=== PATIENT | male | born 1945 | race Caucasian/White ===

== ENCOUNTER 2019-11-28 20:06 | Outpatient (CLI) | payer MEDICAID, SELFPAY ==
[2019-12-02 16:57] LABS: Levetiracetam Keppra 27.5 mcg/mL
== END 2019-11-28 20:07 | disposition home or self-care (01) ==
LOC: LAB 20:07
PROVIDERS: Family Provider Family Medicine; Visit Provider Family Medicine
DX: G40.89 Other seizures (principal)
CPT/HCPCS: 80177

== ENCOUNTER 2023-09-25 13:38 | Emergency (ER) | payer MEDICAID, SELFPAY ==
[2023-09-25] VITALS (7 sets, daily range): BP systolic 125–142; BP diastolic 78–91; PULSE 75–114; RESP 17–19; TEMP 36.9; O2SAT 94–98; BMI 24.1
--- NOTE | 2023-09-25 13:43 | CTR_ITS ---
PROCEDURE INFORMATION: Exam: CT Head Without Contrast Exam date and time: 09/25/2023 1:37 PM Age: 77 years old Clinical indication: Stroke-like symptoms; Speech disturbance and other: Right side weakness TECHNIQUE: Imaging protocol: Computed tomography of the head without contrast. Radiation optimization: All CT scans at this facility use at least one of these dose optimization techniques: automated exposure control; mA and/or kV adjustment per patient size (includes targeted exams where dose is matched to clinical indication); or iterative reconstruction. Other technique: STROKE PROTOCOL was implemented. REPORTING DATA: Count of CT and Cardiac NM exams in prior 12 months: This patient has received 0 known CTs and 0 known cardiac nuclear medicine studies in the 12 months prior to the current study. COMPARISON: CT head wo con* [id number] 04/09/2019 11:56 AM RADIATION DOSE METRICS: Total DLP (mGy-cm): 1127.68 FINDINGS: Brain: There is diffuse cerebral atrophy present, consistent with this patient's age. Periventricular and subcortical white matter low densities are present which at this age likely represent microvascular ischemic change. 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 No evidence for large acute ischemic infarction. Please note acute ischemia can be occult by head CT. No evidence for acute intracranial hemorrhage. Cerebral ventricles: No ventriculomegaly. Paranasal sinuses: Visualized sinuses are unremarkable. No fluid levels. Mastoid air cells: Visualized mastoid air cells are well aerated. Bones/joints: Unremarkable. No acute fracture. Soft tissues: Unremarkable. Vasculature: Calcified plaque is present within the carotid siphons. CT/CT head wo con* [id number] IMPRESSION: There are senescent changes of the brain as described above. No evidence for large acute ischemic infarction or acute intracranial injury. ASSESSMENT: ASPECTS ([place] Stroke Program Early CT Score) is 10.
--- NOTE | 2023-09-25 14:06 | W.ED.NEUROSD ---
HPI - Neuro Symptoms/Deficit General: Chief Complaint: Neuro Symptoms/Deficit Stated Complaint: RIGHT SIDE WEAKNESS Time Seen by Provider: 09/25/23 13:47 History of Present Illness: 77-year-old with history of seizure disorder, hypertension and dementia presents emergency room with right-sided weakness. [facility] to the [facility] staff last well-known was around 11 AM but patient started complaining of right-sided weakness around noon. Patient denies any change in his speech denies any nausea, vomiting, chest pain, shortness of breath. Upon present emergency room patient was taken to CT scan per stroke protocol. Patient was found to have profound right leg weakness and mild drifting of the right upper arm. No other symptoms at this time. Associated symptoms: Reports headache(s); Deny chest pain, nausea, vertigo or vomiting Review of Systems General: Reports: 10 or more systems reviewed and unremarkable except in HPI and below Const: Reports: chills; Denies: fever(s) Card: Denies: chest pain, palpitations, irregular heart rhythm, swelling of feet/ankles, lightheadedness, dyspnea on exertion or orthopnea GI: Denies: abdominal pain, nausea, vomiting, hematemesis, coffee ground emesis, dysphagia, heartburn, early satiety, diarrhea or constipation Musc: Denies: neck pain, back pain, extremity pain, extremity swelling, joint swelling, joint stiffness or limited range of motion Neuro: Reports: headache(s); Denies: numbness in extremities, weakness in extremities, sensory changes, lack of coordination, difficulty walking, dizziness, vertigo or confusion NIH stroke score NIHSS: Level Of Consciousness - 1a: 0 Level Of Consciousness Questions - 1b: Both Correct Level Of Consciousness Commands - 1c: Both Correct Best Gaze - 2: Normal Visual Georges - 3: No Visual Loss Facial Palsy - 4: Normal Motor Arm Right - 5: Drift Motor Arm Left - 5: No Drift Motor Leg Right - 6: No Effort Against [place] Motor Leg Left - 6: No Drift Limb Ataxia - 7: Absent Sensory - 8: Normal Best Language - 9: No Aphasia Dysarthia - 10: Normal Extinction And Inattention - 11: 0 Score: Total Score: 4 Physical Exam Const: COMMON NORMALS: no acute distress, average body habitus, patient oriented x3, no limitations, healthy appearing, alert and well nourished Eye: COMMON NORMALS: Equal, round and reactive pupils present, EOMs intact bilaterally, conjunctivae normal, no scleral icterus, no papilledema, normal visual georges by confrontation and fundi normal bilaterally CONJUNCTIVA: Yes conjunctivae normal PUPIL: Yes Equal, round and reactive pupils present DIRECT OPHTHALMOSCOPY: Yes no papilledema and Yes fundi normal bilaterally Neck/C-Spine: COMMON NORMALS: no meningeal signs and no JVD Chest: COMMONS NORMALS: normal inspection of the chest, normal palpation of entire chest wall, normal inspection of the breasts and normal palpation of the breasts Breast/axilla inspection: Yes normal inspection of the breasts BREAST/AXILLA PALPATION: Yes normal palpation of the breasts Resp: COMMON NORMALS: normal respiratory effort, No retractions, No use of accessory muscles, clear to auscultation bilaterally and percussion normal AUSCULTATION: clear to auscultation bilaterally PERCUSSION: percussion normal Cardio: COMMON NORMALS: no JVD, regular rate, regular rhythm, S1 normal heart sound present, S2 normal heart sound present, No gallops present (Cardio), No clicks present (Cardio), No murmurs present (Cardio), No rub (Cardio) and Peripheral pulses 2+ throughout RATE: regular rate RHYTHM: regular rhythm HEART SOUNDS: S1 normal heart sound present and S2 normal heart sound present PERIPHERAL PULSES: Peripheral pulses 2+ throughout GI: COMMON NORMALS: Normal to inspection, nondistended, normoactive bowel sounds present, Soft to palpation, non-tender, No hepatosplenomegaly present, no masses and no bruits INSPECTION: Yes normal to inspection PALPATION: Yes Soft to palpation and Yes No hepatosplenomegaly present Neuro: COMMON NORMALS: patient oriented x3 SENSORIUM/ORIENTATION: Yes alert MENINGEAL SIGNS: Yes no meningeal signs COORDINATION/BALANCE: [id number] test normal SPEECH: speech normal SENSORY EXAM: No sensory level loss detected, Normal double simultaneous stimulation for sensation or Bilaterally intact graphesthesia MOTOR EXAM: No no tremor noted, No no asterixis, Pronator motor function present, No Tremors during motor activity present and Motor abnormalites present COORDINATION: [id number] test normal Course Consultations: Consultation #1: At [address] Sierra at [facility]. Given his present symptoms and current stroke scale we agreed to start TNKase.. Consultation #2: I discussed patient with the hospitalist and I was told that patient cannot be admitted here due to the fact it is no neurologist on-call this weekend. Consultation #3: I discussed patient with the on-call neurologist at [facility]. He recommended ER to ER transfer. He was also requesting a CTA head and neck. Additional Consultation(s): After reviewing the CTA I spoke with neurologist again and updated him about the CT findings which includes various ascending and descending aortic dilatation. Vital Signs: Vital signs: Vital Signs Temperature 98.4 F 09/25/23 13:41 Pulse Rate 103 H 09/25/23 17:59 Respiratory Rate 17 09/25/23 17:59 Blood Pressure 125/91 09/25/23 17:59 Pulse Oximetry 98 09/25/23 17:59 Oxygen Delivery Me thod Room Air 09/25/23 17:22 MDM - Neuro Symptoms/Deficit Medical Decision Making Patient was made comfortable emergency room. Patient extensive work-up including CBC, CMP, CT head,. Given his presenting symptoms patient underwent stroke protocol and was given Tnkase. Patient was monitored here for several hours with frequent straining and reexamination. Patient strength did improve slightly. I was able to discuss patient with the hospitalist, ER physician at [facility] and neurologist on-call. Differential Diagnosis Likely convulsions, delirium, subarachnoid hemorrhage, peripheral neuropathy, cerebrovascular accident, multiple sclerosis and transient cerebral ischemia Lab Data 09/25/23 14:00 09/25/23 14:[address] 09/25/23 13:43 IMPRESSION: There are senescent changes of the brain as described above. No evidence for large acute ischemic infarction or acute intracranial injury. ASSESSMENT: ASPECTS ([place] Stroke Program Early CT Score) is 10. Head/Neck CTA 09/25/23 16:08 IMPRESSION: No large vessel stenosis or occlusion. IMPRESSION: 1. Ascending thoracic aorta is dilated measuring 4.3 x 4.1 cm in the transverse/AP dimensions. Descending thoracic aorta is aneurysmal measuring 4.2 x 3.9 cm in the transverse/AP dimensions.In general, aortic diameters of 5.[address] patients at high risk for rupture and should be considered for intervention. If connective tissue diseases such as Marfan or Dai-Danlos disease is known, then a diameter of 5 cm prompts consideration of prophylactic aortic root replacement. 2. Convex contour abnormality at the anteromedial aspect of the proximal right internal carotid artery is consistent with a penetrating atherosclerotic ulcer. No evidence for current rupture. 3. Right internal carotid artery is tortuous extending medially along the posterior aspect of the oropharynx. The right side of the oropharynx is effaced by the tortuous right internal carotid artery. 4. There is a 6 mm noncalcified nodule in the right upper lobe.For patients at low risk (minimal or absent history of smoking and of other known risk factors), recommend CT Chest at 6-12 months, then consider CT Chest at 18-24 months. For patients at high risk (history of smoking or of other known risk factors), recommend CT Chest at 6-12 months, then CT Chest at 18-24 months. (Reference: [place]) REFERENCES: 1. [place] Simpson, et al. Guidelines for Management of Incidental Pulmonary Nodules Detected on CT Images: From the Fleischner Society 2017. Radiology. 2017;284(1):228-243. 2. NASCET CRITERIA. The degree of stenosis in the cervical segment of the internal carotid artery is based on NASCET criteria. Normal is no stenosis. Mild is less than 50% stenosis. Moderate is 50-69% stenosis. Severe is 70% to 99% stenosis. Total occlusion is no detectable patent lumen. Laboratory Results WBC 7.41 10^3/uL (3.29-11.43) 09/25/23 14:00 RBC 4.14 10^6/uL (3.85-5.65) 09/25/23 14:00 Hgb 12.30 g/dL (11.27-16.99) 09/25/23 14:00 Hct 39.4 % (37-53) 09/25/23 14:00 MCV 95.2 fl (82-101) 09/25/23 14:00 MCH 29.7 pg (27-33) 09/25/23 14:00 MCHC 31.2 g/dL (30-55) 09/25/23 14:00 RDW 13.6 % (12.1-15.1) 09/25/23 14:00 Plt Count 206 10^3/cmm (157-399) 09/25/23 14:00 MPV 11.7 fL (7.4-10.4) H 09/25/23 14:00 Neut % (Auto) 60.9 % 09/25/23 14:00 Lymph % (Auto) 24.3 % 09/25/23 14:00 [place] % (Auto) 10.7 % 09/25/23 14:00 Eos % (Auto) 3.1 % 09/25/23 14:00 Baso % (Auto) 0.5 % 09/25/23 14:00 Neut # (Auto) 4.51 10^3/uL (1.8-7.7) 09/25/23 14:00 Lymph # (Auto) 1.8 10^3/uL (0.8-4.8) 09/25/23 14:00 [place] # (Auto) 0.8 10^3/uL (0.2-0.9) 09/25/23 14:00 Eos # (Auto) 0.2 10^3/uL (0.0-0.8) 09/25/23 14:00 Baso # (Auto) 0.0 10^3/uL (0.0-0.1) 09/25/23 14:00 Nucleated RBC % (auto) 0 % 09/25/23 14:00 Nucleated RBCs # 0.0 /100WBC 09/25/23 14:00 PT 14.80 SECONDS (12.1-14.9) 09/25/23 14:00 INR 1.13 (0.8-1.2) 09/25/23 14:00 APTT 32.7 SECONDS (23.9-36.7) 09/25/23 14:00 Sodium 138 mmol/L (136-145) 09/25/23 14:00 Potassium 4.0 mmol/L (3.5-5.1) 09/25/23 14:00 Chloride 104 mmol/L (98-107) 09/25/23 14:00 Carbon Dioxide 26 mmol/L (22-29) 09/25/23 14:00 Anion Gap 12.0 (5-19) 09/25/23 14:00 BUN 19 mg/dL (8-23) 09/25/23 14:00 Creatinine 0.9 mg/dL (0.7-1.2) 09/25/23 14:00 GFR Calculation Not Reportable 09/25/23 14:00 Glucose 109 mg/dL (65-115) 09/25/23 14:00 POC Glucose 100 mg/dL (70-110) 09/25/23 13:43 Calculated Osmolality 289 mOsm/kg (285-295) 09/25/23 14:00 Calcium 9.0 mg/dL (8.5-10.5) 09/25/23 14:00 Total Bilirubin 0.8 mg/dL (0.15-1.2) 09/25/23 14:00 AST 16 U/L (0-40) 09/25/23 14:00 ALT 12 U/L (0-41) 09/25/23 14:00 Alkaline Phosphatase 84 U/L (40-130) 09/25/23 14:00 Total Protein 6.9 g/dL (6.6-8.7) 09/25/23 14:00 Albumin 3.5 g/dL (3.5-5.2) 09/25/23 14:00 Globulin 3.4 g/dL (1.3-4.6) 09/25/23 14:00 Urine Color Yellow (Yellow) 09/25/23 15:30 Urine Appearance Clear (CLEAR) 09/25/23 15:30 Urine pH 6 (5-7) 09/25/23 15:30 Ur Specific [place] 1.010 (1.005-1.030) 09/25/23 15:30 Urine Protein Neg (Negative) 09/25/23 15:30 Urine Glucose (UA) Norm (Normal) 09/25/23 15:30 Urine Ketones Negative (Negative) 09/25/23 15:30 Urine Blood 2+ (Negative) H 09/25/23 15:30 Urine Nitrate Negative (Negative) 09/25/23 15:30 Urine Bilirubin Neg (Negative) 09/25/23 15:30 Urine Urobilinogen Norm mg/dL (Negative) 09/25/23 15:30 Ur Leukocyte Esterase Negative (Negative) 09/25/23 15:30 Urine Opiates Screen Negative ng/mL (Negative) 09/25/23 15:30 Ur Barbiturates Screen Negative ng/mL (Negative) 09/25/23 15:30 Ur Phencyclidine Scrn Negative ng/mL (Negative) 09/25/23 15:30 Ur Amphetamines Screen Negative ng/mL (Negative) 09/25/23 15:30 U Benzodiazepines Scrn Negative ng/mL (Negative) 09/25/23 15:30 Urine Cocaine Screen Negative ng/mL (Negative) 09/25/23 15:30 U Marijuana (THC) Screen Negative ng/mL (Negative) 09/25/23 15:30 XR interpretation done by ED provider, pending radiology final review Critical Care Time Critical Care Time: Critical Care Time: Yes Total Critical Care Time: 45 Attestation: Time spent discussing patient with ER physician at [facility], neurologist at [facility], hospitalist, time spent discussing finding with the patient. Time spent reassessing and reevaluation patient after each treatment. Time spent reviewing old medical records from jail. Discharge Plan Discharge Patient Disposition: er Intermediate Care Fac Clinical Impression: Cerebrovascular accident, Aortic aneurysm without rupture Condition: Stable Prescriptions: No Action cetirizine 5 mg Tablet 5 mg PO DAILY Zofran 4 mg Tablet 4 mg PO Q6H PRN (Reason: Nausea And Vomiting) Stool Softener 50 mg Capsule 50 mg PO BID PRN (Reason: Constipation) Aspir-81 81 mg Tablet,Delayed Release (Dr/Ec) 81 mg PO DAILY tramadol 50 mg Tablet 50 mg PO Q6H PRN (Reason: Pain) [place]ap Arthritis Pain 650 mg Tablet Extended Release 650 mg PO Q8H PRN (Reason: Pain) Milk of Magnesia 400 mg/5 mL Suspension 30 ml PO BID PRN (Reason: Constipation) bisacodyl 10 mg Suppository 10 mg LA DAILY PRN (Reason: Constipation) Enema 19-7 gram/118 mL Enema 118 ml LA DAILY PRN (Reason: Constipation) folic acid 1 mg Tablet 1 mg PO DAILY levetiracetam 750 mg Tablet 750 mg PO BID metoprolol succinate 25 mg Tablet Extended Release 24 Hr 25 mg PO DAILY Miralax 17 gram/dose Powder 4 g PO DAILY PRN (Reason: Constipation) Referrals: eSlena Dial MD, [facility] [place] [facility] [place] Provider] - Coding Level of Care Code ED Charge Out Clerk for Riki Tang
[2023-09-25 14:15] LABS: Basophils % 0.5 %; Eosinophils # 0.2 10^3/uL (0.0-0.8); Eosinophils % 3.1 %; Hematocrit 39.4 % (37-53); Lymphocytes # 1.8 10^3/uL (0.8-4.8); Lymphocytes % 24.3 %; Mean Corpuscular HGB Conc 31.2 g/dL (30-55); Mean Corpuscular Hemoglobin 29.7 pg (27-33); Mean Corpuscular Volume 95.2 fl (82-101); Mean Platelet Volume 11.7 fL (7.4-10.4); Monocytes # 0.8 10^3/uL (0.2-0.9); Monocytes % 10.7 %; Neutrophils # 4.51 10^3/uL (1.8-7.7); Neutrophils % 60.9 %; Nucleated Red Blood Cells % 0 %; Platelet Count 206 10^3/cmm (157-399); Red Blood Count 4.14 10^6/uL (3.85-5.65); Red Cell Distribution Width 13.6 % (12.1-15.1); White Blood Count 7.41 10^3/uL (3.29-11.43)
[2023-09-25 14:34] LABS: Alanine Aminotransferase 12 U/L (0-41); Albumin Level 3.5 g/dL (3.5-5.2); Alkaline Phosphatase 84 U/L (40-130); Aspartate Amino Transferase 16 U/L (0-40); Blood Urea Nitrogen 19 mg/dL (8-23); Carbon Dioxide 26 mmol/L (22-29); Chloride 104 mmol/L (98-107); Globulin 3.4 g/dL (1.3-4.6); Glucose 109 mg/dL (65-115); Osmolality Calculated 289 mOsm/kg (285-295); Sodium 138 mmol/L (136-145); Total Bilirubin 0.8 mg/dL (0.15-1.2); Total Protein 6.9 g/dL (6.6-8.7)
[2023-09-25] MEDS: tenecteplase 50mg Kit (STROKE) 50 MG (14:34)
[2023-09-25 14:42] LABS: INR 1.13 (0.8-1.2)
[2023-09-25 14:43] LABS: Partial Thromboplastin Time 32.7 SECONDS (23.9-36.7)
[2023-09-25 15:34] LABS: Add Urine Microscopic? NO; Charge for UA Resulting for Rev
[2023-09-25 15:46] LABS: Bilirubin Urine Neg (Negative); Blood Urine 2+ (Negative); Glucose Urine UA Norm (Normal); Ketones Urine Negative (Negative); Leukocyte Esterase Urine Negative (Negative); Nitrate Urine Negative (Negative); Protein Urine Neg (Negative); Urine Appearance Clear (CLEAR); Urine Color Yellow (Yellow); Urobilinogen Urine Norm (Negative); pH Urine 6 (5-7)
[2023-09-25 15:49] LABS: Amphetamines Screen Urine Negative (Negative); Barbiturates Screen Urine Negative (Negative); Benzodiazepines Screen Urine Negative (Negative); Cocaine Screen Urine Negative (Negative); Opiate Screen Urine Negative (Negative); PCP Screen Urine Negative (Negative); THC Screen Urine Negative (Negative)
--- NOTE | 2023-09-25 16:08 | CTR_ITS ---
PROCEDURE INFORMATION: Exam: CTA Head With Contrast, Arteriography Exam date and time: 09/25/2023 4:18 PM Age: 77 years old Clinical indication: Speech disturbance and weakness; Additional info: CVA TECHNIQUE: Imaging protocol: Computed tomographic angiography of the head with contrast. Exam focused on the arteries. 3D rendering (Not supervised by radiologist): MIP and/or 3D reconstructed images were created by the technologist. Radiation optimization: All CT scans at this facility use at least one of these dose optimization techniques: automated exposure control; mA and/or kV adjustment per patient size (includes targeted exams where dose is matched to clinical indication); or iterative reconstruction. Contrast material: OMNI 350; Contrast volume: 100 ml; Contrast route: INTRAVENOUS (IV); REPORTING DATA: Count of CT and Cardiac NM exams in prior 12 months: This patient has received 0 known CTs and 0 known cardiac nuclear medicine studies in the 12 months prior to the current study. COMPARISON: CT head wo con* [id number] 09/25/2023 1:37 PM RADIATION DOSE METRICS: Total DLP (mGy-cm): 477.73 FINDINGS: ANTERIOR CIRCULATION: Right internal carotid artery: Scattered atherosclerotic plaque. Intracranial segment is patent with no significant stenosis. No aneurysm. Right middle cerebral artery: No occlusion or significant stenosis. No aneurysm. Right anterior cerebral artery: No occlusion or significant stenosis. No aneurysm. Left internal carotid artery: Scattered atherosclerotic plaque. Intracranial segment is patent with no significant stenosis. No aneurysm. Left middle cerebral artery: No occlusion or significant stenosis. No aneurysm. Left anterior cerebral artery: No occlusion or significant stenosis. No aneurysm. POSTERIOR CIRCULATION: Right vertebral artery: Normal variant hypoplastic right vertebral artery. No occlusion or significant stenosis. No aneurysm. Left vertebral artery: No occlusion or significant stenosis. No aneurysm. Basilar artery: No occlusion or significant stenosis. No aneurysm. Right posterior cerebral artery: No occlusion or significant stenosis. No aneurysm. Left posterior cerebral artery: No occlusion or significant stenosis. No aneurysm. Brain: No definite mass, mass effect, or midline shift. Cerebral ventricles: No ventriculomegaly. Bones/joints: Unremarkable. No acute fracture. Soft tissues: Unremarkable. PROCEDURE INFORMATION: Exam: CTA Neck With Contrast Exam date and time: 09/25/2023 4:18 PM Age: 77 years old Clinical indication: Speech disturbance and weakness; Additional info: CVA TECHNIQUE: Imaging protocol: Computed tomographic angiography of the neck with contrast. Exam focused on the cervical segments of the vasculature. 3D rendering (Not supervised by radiologist): MIP and/or 3D reconstructed images were created by the technologist. Radiation optimization: All CT scans at this facility use at least one of these dose optimization techniques: automated exposure control; mA and/or kV adjustment per patient size (includes targeted exams where dose is matched to clinical indication); or iterative reconstruction. Contrast material: OMNI 350; Contrast volume: 100 ml; Contrast route: INTRAVENOUS (IV); REPORTING DATA: Count of CT and Cardiac NM exams in prior 12 months: This patient has received 0 known CTs and 0 known cardiac nuclear medicine studies in the 12 months prior to the current study. COMPARISON: CT head wo con* [id number] 09/25/2023 1:37 PM RADIATION DOSE METRICS: Total DLP (mGy-cm): 477.73 FINDINGS: Right common carotid artery: Mild atherosclerotic plaque. No stenosis. No dissection or occlusion. Right internal carotid artery: Scattered atherosclerotic plaque most prominent proximally. Convex contour abnormality at the anteromedial aspect of the proximal right internal carotid artery is consistent with a penetrating atherosclerotic ulcer. No evidence for current rupture. Right internal carotid artery is tortuous extending medially along the posterior aspect of the oropharynx. The right side of the oropharynx is effaced by the tortuous right internal carotid artery. Right external carotid artery: No occlusion or stenosis of the origin. Left common carotid artery: No stenosis. No dissection or occlusion. Left internal carotid artery: Scattered atherosclerotic plaque most prominent proximally. No stenosis of the extracranial segment. No dissection or occlusion. Left external carotid artery: No occlusion or stenosis of the origin. Right vertebral artery: Normal variant hypoplastic right vertebral artery. No stenosis. No dissection or occlusion. Left vertebral artery: No stenosis. No dissection or occlusion. Aorta: Ascending thoracic aorta is dilated measuring 4.3 x 4.1 cm in the transverse/AP dimensions. Descending thoracic aorta is aneurysmal measuring 4.2 x 3.9 cm in the transverse/AP dimensions. Soft tissues: Normal. No significant soft tissue swelling. Bones/joints: There degenerative changes in the visualized spine. No stenosis of the extracranial segment. No dissection or occlusion. Lungs: There are bulla at the bilateral lung apices. There is a 6 mm noncalcified nodule in the right upper lobe seen on series 4, image 22. CT/CT angio headneck* [id number] IMPRESSION: No large vessel stenosis or occlusion. IMPRESSION: 1. Ascending thoracic aorta is dilated measuring 4.3 x 4.1 cm in the transverse/AP dimensions. Descending thoracic aorta is aneurysmal measuring 4.2 x 3.9 cm in the transverse/AP dimensions.In general, aortic diameters of 5.[address] patients at high risk for rupture and should be considered for intervention. If connective tissue diseases such as Marfan or Dai-Danlos disease is known, then a diameter of 5 cm prompts consideration of prophylactic aortic root replacement. 2. Convex contour abnormality at the anteromedial aspect of the proximal right internal carotid artery is consistent with a penetrating atherosclerotic ulcer. No evidence for current rupture. 3. Right internal carotid artery is tortuous extending medially along the posterior aspect of the oropharynx. The right side of the oropharynx is effaced by the tortuous right internal carotid artery. 4. There is a 6 mm noncalcified nodule in the right upper lobe.For patients at low risk (minimal or absent history of smoking and of other known risk factors), recommend CT Chest at 6-12 months, then consider CT Chest at 18-24 months. For patients at high risk (history of smoking or of other known risk factors), recommend CT Chest at 6-12 months, then CT Chest at 18-24 months. (Reference: [place]) REFERENCES: 1. Josephholuca H, et al. Guidelines for Management of Incidental Pulmonary Nodules Detected on CT Images: From the Fleischner Society 2017. Radiology. 2017;284(1):228-243. 2. NASCET CRITERIA. The degree of stenosis in the cervical segment of the internal carotid artery is based on NASCET criteria. Normal is no stenosis. Mild is less than 50% stenosis. Moderate is 50-69% stenosis. Severe is 70% to 99% stenosis. Total occlusion is no detectable patent lumen.
[2023-09-25] MEDS: iohexol 350 mg/mL 500 mL Btl (per mL) IV (16:25)
--- NOTE | 2023-09-25 17:40 | PC.NURSE ---
report given to Air evac team, updated [facility] nurse, [place] on transfer.
[2023-09-25 18:30] LABS: Glucose Point of Care 100 mg/dL (70-110)
[2023-10-15] MEDS: iohexol 350 mg/mL 500 mL Btl (per mL) IV (14:14)
== END 2023-09-25 18:04 | disposition intermediate care facility (04) ==
PROVIDERS: Emergency Provider Family Medicine; Family Provider Family Medicine
DX: I63.9 Cerebral infarction, unspecified (principal); Z79.82 Long term (current) use of aspirin; I71.23 Aneurysm of the descending thoracic aorta, without rupture
CPT/HCPCS: 36416; 70450; 70496; 70498; 80053; 80306; 81003; 82962; 85025; 85610; 85730; 99285; J3101; Q9967

== ENCOUNTER 2023-10-15 08:23 | Observation (INO) | payer MEDICAID, SELFPAY ==
[2023-10-15] VITALS (12 sets, daily range): BP systolic 105–158; BP diastolic 63–90; PULSE 58–120; RESP 16–24; TEMP 36.6–37; O2SAT 95–97; BMI 23.6; BMI 23.1
--- NOTE | 2023-10-15 08:37 | W.ED.AMS ---
HPI - Altered Mental Status General: Chief Complaint: Altered Mental Status Stated Complaint: ams Time Seen by Provider: 10/15/23 08:25 Source: patient Mode of arrival: ambulatory History of Present Illness: 77-year-old male presents emergency room with complaint of reported altered mental status with speech slurring. He has previously had a stroke. The symptoms began reportedly around midnight last night he presents here at around 8:20 AM. Reportedly previously has had a stroke and has some deficits but we are working to confirm what those were previously. He is also complaining of a right-sided headache. He is not on any anticoagulation. MD complaint: altered mental status Review of Systems General: Reports: ROS unobtainable due to mental status PFS ED PFSH: Medical History Depression Alcoholism CHF (congestive heart failure) Seizure disorder Hyperlipidemia Hypertension CVA (cerebral vascular accident) Social History Smoking and tobacco/nicotine status: former use of tobacco/nicotine Alcohol intake: former Physical Exam Narrative: Generalized weakness. Patient is able to voluntarily raise right arm and left arm as well as his left leg has significant difficulty raising the right leg off the bed. No facial weakness, facial muscles symmetrical. Const: COMMON NORMALS: no acute distress GENERAL APPEARANCE: cooperative and comfortable ORIENTATION/CONSCIOUSNESS: Yes awake HENMT: COMMON NORMALS: normocephalic, atraumatic and hearing grossly normal bilaterally HEAD & SCALP: normocephalic and atraumatic Resp: COMMON NORMALS: normal respiratory effort, No retractions, No use of accessory muscles and clear to auscultation bilaterally AUSCULTATION: clear to auscultation bilaterally Cardio: COMMON NORMALS: regular rate, regular rhythm and No murmurs present (Cardio) RATE: regular rate RHYTHM: regular rhythm GI: COMMON NORMALS: Soft to palpation and No hepatosplenomegaly present AUSCULTATION: Yes normoactive bowel sounds PALPATION: Yes Soft to palpation, No Tenderness to palpation present (GI), No Guarding due to palpation present (GI) and Yes No hepatosplenomegaly present Extremity: COMMON NORMALS: normal to inspection, capillary refill normal, no clubbing, cyanosis or edema, no calf tenderness and no pedal edema Skin: COMMON NORMALS: no rashes or lesions noted GENERAL SKIN EXAM: no rashes or lesions noted Course Vital Signs: Vital signs: Vital Signs Temperature 98.1 F 10/18/23 11:50 Pulse Rate 0 L 10/18/23 14:00 Respiratory Rate 16 10/18/23 11:50 Blood Pressure 144/86 10/18/23 11:50 Pulse Oximetry 96 10/18/23 11:50 Oxygen Delivery Me thod Room Air 10/18/23 11:50 Oxygen Flow Rate 2 10/18/23 08:00 MDM - Altered Mental Status Medical Decision Making CVA with recent previous CVA. Will admit discussed with hospitalist orders written Medical Records I reviewed the patient's medical records. Lab Data I reviewed the patient's lab results. 10/18/23 05:59 10/17/23 17:51 Radiology Impressions Chest X-Ray 10/15/23 15:33 IMPRESSION: No acute findings. Laboratory Results WBC 7.97 10^3/uL (3.29-11.43) 10/15/23 08:35 RBC 3.83 10^6/uL (3.85-5.65) L 10/15/23 08:35 Hgb 11.50 g/dL (11.27-16.99) 10/15/23 08:35 Hct 37.4 % (37-53) 10/15/23 08:35 MCV 97.7 fl (82-101) 10/15/23 08:35 MCH 30.0 pg (27-33) 10/15/23 08:35 MCHC 30.7 g/dL (30-55) 10/15/23 08:35 RDW 14.8 % (12.1-15.1) 10/15/23 08:35 Plt Count 216 10^3/cmm (157-399) 10/15/23 08:35 MPV 10.5 fL (7.4-10.4) H 10/15/23 08:35 Neut % (Auto) 66.8 % 10/15/23 08:35 Lymph % (Auto) 22.0 % 10/15/23 08:35 Elbert % (Auto) 8.2 % 10/15/23 08:35 Eos % (Auto) 1.9 % 10/15/23 08:35 Baso % (Auto) 0.5 % 10/15/23 08:35 Neut # (Auto) 5.33 10^3/uL (1.8-7.7) 10/15/23 08:35 Lymph # (Auto) 1.8 10^3/uL (0.8-4.8) 10/15/23 08:35 Elbert # (Auto) 0.7 10^3/uL (0.2-0.9) 10/15/23 08:35 Eos # (Auto) 0.2 10^3/uL (0.0-0.8) 10/15/23 08:35 Baso # (Auto) 0.0 10^3/uL (0.0-0.1) 10/15/23 08:35 Nucleated RBC % (auto) 0 % 10/15/23 08:35 Nucleated RBCs # 0.0 /100WBC 10/15/23 08:35 Sodium 142 mmol/L (136-145) 10/15/23 08:35 Potassium 3.7 mmol/L (3.5-5.1) 10/15/23 08:35 Chloride 105 mmol/L (98-107) 10/15/23 08:35 Carbon Dioxide 28 mmol/L (22-29) 10/15/23 08:35 Anion Gap 12.7 (5-19) 10/15/23 08:35 BUN 17 mg/dL (8-23) 10/15/23 08:35 Creatinine 0.8 mg/dL (0.7-1.2) 10/15/23 08:35 GFR Calculation Not Reportable 10/15/23 08:35 Glucose 101 mg/dL (65-115) 10/15/23 08:35 Calculated Osmolality 296 mOsm/kg (285-295) H 10/15/23 08:35 Calcium 8.9 mg/dL (8.5-10.5) 10/15/23 08:35 Total Bilirubin 1.5 mg/dL (0.15-1.2) H 10/15/23 08:35 AST 12 U/L (0-40) 10/15/23 08:35 ALT 12 U/L (0-41) 10/15/23 08:35 Alkaline Phosphatase 107 U/L (40-130) 10/15/23 08:35 Total Protein 6.7 g/dL (6.6-8.7) 10/15/23 08:35 Albumin 3.7 g/dL (3.5-5.2) 10/15/23 08:35 Globulin 3.0 g/dL (1.3-4.6) 10/15/23 08:35 Urine Color Yellow (Yellow) 10/15/23 09:04 Urine Appearance Clear (CLEAR) 10/15/23 09:04 Urine pH 7 (5-7) 10/15/23 09:04 Ur Specific [place] 1.000 (1.005-1.030) L 10/15/23 09:04 Urine Protein Neg (Negative) 10/15/23 09:04 Urine Glucose (UA) Norm (Normal) 10/15/23 09:04 Urine Ketones Negative (Negative) 10/15/23 09:04 Urine Blood Neg (Negative) 10/15/23 09:04 Urine Nitrate Negative (Negative) 10/15/23 09:04 Urine Bilirubin Neg (Negative) 10/15/23 09:04 Urine Urobilinogen Norm mg/dL (Negative) 10/15/23 09:04 Ur Leukocyte Esterase Negative (Negative) 10/15/23 09:04 All radiology interpretation(s) finalized by discharge Discharge Plan Discharge Patient Disposition: Admitted As Inpatient Admit Provider: Rusty Erickson Clinical Impression: CVA (cerebral vascular accident), Hypertension, Alcoholism Condition: Stable Discharge Diet: As Directed Discharge Activity: Increase activity as tolerated and As per PT/OT instructions Coding Level of Care Code 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
--- NOTE | 2023-10-15 08:44 | CT_ITS ---
WS: [id number] CT HEAD TECHNIQUE: Noncontrast CT of the head obtained from the skullbase to the vertex. CLINICAL INFORMATION: slurred speech COMPARISON: 09/25/2023 DLP: 1118.[address] scans at [facility] use at least one of these dose optimization techniques: automated e xposure control; mA and/or kV adjustment per patient size (includes targeted exams where dose is matc hed to clinical indication); or iterative reconstruction. FINDINGS: No evidence of intracranial hemorrhage or mass effect. Ventricular system and basal cisterns are zavala nt. Moderate small vessel changes with moderate parenchymal volume loss. No extra-axial fluid collect ions. No evidence of mass or mass effect. Paranasal sinuses and mastoid air cells are well aerated. .Normal visualized soft tissues. IMPRESSION: 1. No evidence of intracranial hemorrhage or mass effect. 2. Moderate small vessel changes. 3. No acute intracranial findings.
[2023-10-15 08:51] LABS: Basophils % 0.5 %; Eosinophils # 0.2 10^3/uL (0.0-0.8); Eosinophils % 1.9 %; Hematocrit 37.4 % (37-53); Lymphocytes # 1.8 10^3/uL (0.8-4.8); Mean Corpuscular HGB Conc 30.7 g/dL (30-55); Mean Corpuscular Volume 97.7 fl (82-101); Mean Platelet Volume 10.5 fL (7.4-10.4); Monocytes # 0.7 10^3/uL (0.2-0.9); Monocytes % 8.2 %; Neutrophils # 5.33 10^3/uL (1.8-7.7); Neutrophils % 66.8 %; Nucleated Red Blood Cells % 0 %; Platelet Count 216 10^3/cmm (157-399); Red Blood Count 3.83 10^6/uL (3.85-5.65); Red Cell Distribution Width 14.8 % (12.1-15.1); White Blood Count 7.97 10^3/uL (3.29-11.43)
--- NOTE | 2023-10-15 09:02 | ECG_ITS ---
[facility] Test Date: 2023-10-15 Pat Name: Ezra Duvall Department: Room: Gender: Male Qualitative Researcher: : 1945 Requested By: Jack Frye Order Number: [id number] Lucio MD: Oly Gipson M.D. Measurements Intervals [place] Rate: 72 P: -66 [place]: 195 QRS: -51 QRSD: 117 T: 14 QT: 376 QTc: 414 Interpretive Statements ECTOPIC ATRIAL RHYTHM LEFT ANTERIOR FASCICULAR BLOCK [QRS AXIS <= -45, QR IN I, RS IN II] POSSIBLE ANTERIOR MYOCARDIAL INFARCTION , OF INDETERMINATE AGE Compared to ECG 04/09/2019 12:48:02 Ectopic atrial rhythm now present Left anterior fascicular block now present Myocardial infarct finding now present Sinus bradycardia no longer present First degree AV block no longer present Left-axis deviation no longer present Intraventricular conduction delay no longer present T-wave abnormality no longer present Electronically Signed On 10-16-2023 6:06:34 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 [id number]
--- NOTE | 2023-10-15 09:06 | PC.PHAR ---
pt is from [facility] [phone]-[facility] fidel med areli from [facility] pt had no medications today
[2023-10-15 09:19] LABS: Add Urine Microscopic? NO; Charge for UA Resulting for Rev
[2023-10-15 09:26] LABS: Alanine Aminotransferase 12 U/L (0-41); Albumin Level 3.7 g/dL (3.5-5.2); Alkaline Phosphatase 107 U/L (40-130); Anion Gap 12.7 (5-19); Aspartate Amino Transferase 12 U/L (0-40); Blood Urea Nitrogen 17 mg/dL (8-23); Calcium 8.9 mg/dL (8.5-10.5); Carbon Dioxide 28 mmol/L (22-29); Chloride 105 mmol/L (98-107); Glucose 101 mg/dL (65-115); Osmolality Calculated 296 mOsm/kg (285-295); Potassium 3.7 mmol/L (3.5-5.1); Sodium 142 mmol/L (136-145); Total Bilirubin 1.5 mg/dL (0.15-1.2); Total Protein 6.7 g/dL (6.6-8.7)
[2023-10-15 09:30] LABS: Bilirubin Urine Neg (Negative); Blood Urine Neg (Negative); Glucose Urine UA Norm (Normal); Ketones Urine Negative (Negative); Leukocyte Esterase Urine Negative (Negative); Nitrate Urine Negative (Negative); Protein Urine Neg (Negative); Urine Appearance Clear (CLEAR); Urine Color Yellow (Yellow); Urobilinogen Urine Norm (Negative); pH Urine 7 (5-7)
--- NOTE | 2023-10-15 11:17 | CT_ITS ---
WS: [id number] CTA HEAD AND NECK TECHNIQUE: Contrast enhanced CTA of the head and neck with coronal and sagittal reformatted images an d maximum intensity projection (MIP) images. NASCET criteria utilized. CLINICAL INFORMATION: speach deficiet COMPARISON: Comparison 09/25/2023 DLP: 501.[address] scans at [facility] use at least one of these dose optimization techniques: automated e xposure control; mA and/or kV adjustment per patient size (includes targeted exams where dose is matc hed to clinical indication); or iterative reconstruction. FINDINGS: Aneurysmal aortic arch is unchanged from the recent study. RIGHT: RIGHT common carotid artery is patent. Mild calcification RIGHT carotid bulb. No significant R IGHT ICA stenosis. RIGHT ICA is tortuous but patent to the skull base. LEFT: LEFT common artery is patent. Moderate calcified atheromatous plaque LEFT carotid bulb extendin g into the ICA. LEFT ICA is patent to the skull base. LEFT dominant vertebral artery. Tiny RIGHT vertebral artery unchanged from previous. Basilar artery i s patent. Persistent RIGHT REGIONAL SALES CONSULTANT. Tiny LEFT REGIONAL SALES CONSULTANT with stenosis in the mid and distal segments appe ars unchanged from the prior study 09/25/2023 Both ICAs are patent at the skull base. Small RIGHT A1 segment. Normal vascularity to the MACK and MCA territories bilaterally. No evidence of proximal flow-limiting stenosis. Stable 7 mm nodule in the RIGHT upper lobe. Recommend 6-month chest CT follow-up. Mild spondylitic ch anges cervical spine. IMPRESSION: 1. No significant ICA stenosis bilaterally. Both ICAs are patent to the skull base. Retropharyngeal course to the RIGHT cervical ICA. 2. No proximal flow-limiting intracranial stenosis. 3. LEFT dominant vertebral artery. Basilar artery is patent. Persistent RIGHT REGIONAL SALES CONSULTANT. 4. Tiny LEFT REGIONAL SALES CONSULTANT with stenosis in the mid and distal segments appears unchanged from the prior study 09/25/2023 5. 7 mm nodule RIGHT upper lobe. Recommend 6-month chest CT follow-up.
--- NOTE | 2023-10-15 13:00 | P.HP_ITS ---
Documented by User: Camelia Manjit LANA STDALIA 10/15/23 14:06 Providers/Chief Complaint 2 Primary Care Provider: Selena Dial MD, [facility] Chief Complaint: ams History of Present Illness Ezra Duvall is a 77 year old male who has past medical history of HTN, CVA- 09/25/23 with mild right sided deficits, dementia, and depression. Mr. Duvall present to the ED today from [facility] with possible CVA. When speaking with staff involved with Mr. Duvall care they mentioned his s/s this morning was as listed:mumbling, confusion, increased right-sided weakness, and right facial numbness. Eloina's normal state after his CVA in September-reported by [facility] staff was as listed: residual right-sided facial droop, slight right sided weakness, he is able to ambulate and perform ADLs independently and tolerates diet well. No fever or cough reported, patient is able to conversate normally. Mr. Duvall appears to be alert in no apparent distress, noted to be on room air. He is able to tell me his name, date of , and age. He does not know what month,year, or who the president is but is able to tell he just celebrated Thanksgiving. He reports he has a headache, 5 on a scale of 1-10. Patient states he has been nauseous, no vomiting noted. Last bowel movement 10/14, normal. Denies chest pain and shortness of breath. NIH stroke scale performed- pt scored 2. Mild right sided weakness noted, patient able to lift upper and lower extremities and hold for 10 seconds. No sensory loss noted in upper and lower extremities. I did not observe a right-sided facial droop. Patient states he does not have any family, just a couple nieces. Review of Systems 2 Const: Denies: fever(s) or chills Eyes: Denies: change in vision, blurry vision or blind spots Card: Denies: chest pain, palpitations, edema or dyspnea on exertion Resp: Denies: dyspnea or productive cough GI: Reports: nausea; Denies: abdominal pain, diarrhea or constipation : Denies: difficulty urinating, dysuria or urinary frequency Neuro: Reports: headache(s) and weakness in extremities Medications/Allergies Home Medications Medication Instructions Recorded Confirmed Last Taken Type acetaminophen 650 mg 650 mg PO Q8H PRN Pain 09/25/23 10/15/23 09/25/23 History tablet,extended release (Mapap Arthritis Pain) aspirin 81 mg tablet,delayed 81 mg PO DAILY 09/25/23 10/15/23 09/25/23 History release bisacodyl 10 mg rectal suppository 10 mg AK DAILY PRN Constipation 09/25/23 10/15/23 Unknown History cetirizine 5 mg tablet 5 mg PO DAILY 09/25/23 10/15/23 09/25/23 History folic acid 1 mg tablet 1 mg PO DAILY 09/25/23 10/15/23 09/25/23 History levetiracetam 750 mg tablet 750 mg PO BID 09/25/23 10/15/23 09/25/23 History metoprolol succinate 25 mg 25 mg PO DAILY 09/25/23 10/15/23 09/25/23 History tablet,extended release 24 hr polyethylene glycol 3350 17 17 g PO DAILY PRN Constipation 09/25/23 10/15/23 Unknown History gram/dose oral powder (Miralax) sodium phosphates 19 gram-7 118 ml AK DAILY PRN Constipation 09/25/23 10/15/23 Unknown History gram/118 mL enema (Enema) tramadol 50 mg tablet 50 mg PO Q6H PRN Pain 09/25/23 10/15/23 Unknown History acetaminophen 650 mg 650 mg PO DAILY 10/15/23 10/15/23 Unknown History tablet,extended release (Mapap Arthritis Pain) amlodipine 2.5 mg tablet 2.5 mg PO DAILY 10/15/23 10/15/23 Unknown History atorvastatin 40 mg tablet (Lipitor) 40 mg PO BEDTIME 10/15/23 10/15/23 Unknown History magnesium citrate See Rx Instructions .Route .COMPLEX 10/15/23 10/15/23 Unknown History magnesium hydroxide 400 mg/5 mL 30 ml PO DAILY PRN Constipation 10/15/23 10/15/23 Unknown History oral suspension (Milk of Magnesia) menthol 4 % topical gel (Biofreeze 1 applic topical Q4H PRN Pain 10/15/23 10/15/23 Unknown History (menthol)) sennosides 8.6 mg-docusate sodium 1 tab PO Q12H PRN Constipation 10/15/23 10/15/23 Unknown History 50 mg tablet (Stool Softener-Laxative) Allergies Allergy/AdvReac Type Severity Reaction Status Date / Time No Known Allergies Allergy Verified 10/15/23 08:52 PFSH Acute 2 PFSH: Medical History (Updated 10/15/23 @ 14:11 by Rusty Erickson MD) Depression Alcoholism CHF (congestive heart failure) Seizure disorder Hyperlipidemia Hypertension CVA (cerebral vascular accident) Social History (Updated 10/15/23 @ 14:10 by Rusty Erickson MD) Smoking and tobacco/nicotine status: former use of tobacco/nicotine Alcohol intake: former Vitals/I&O/Wt Last Vital Signs Temp 98.6 F 10/15/23 08:24 Pulse 72 10/15/23 12:12 Resp 18 10/15/23 12:12 BP 147/82 10/15/23 12:12 Pulse Ox 97 10/15/23 12:12 O2 Del Method Room Air 10/15/23 12:12 Weight last 48 hrs Weight 155 lb Physical Exam 2 Narrative: General Exam: Alert, in no apparent distress. Reports headache all morning. Neck supple, no lymphadenopathy, no JVD. Cardiovascular- heart rhythm normal, rate normal noted to be in the 80s. Palpable pulses 2+ bilateral radial, bilateral Lungs sound clear on auscultation, patient on room air. Denies cough. Abdomen soft, non-tender. normoactive bowel sounds. Patient last BM 10/14. : denies any difficulty urinating, able to take himself to the bathroom. Extremities: slight right sided weakness from previous CVA 09/25/23, capillary refill normal, no cyanosis or edema noted. Skin: no rashes or lesions noted, no wounds, and turgor normal. Neuro: COORDINATION/BALANCE: [id number] test normal and [id number] test normal SPEECH: speech normal MOTOR EXAM: Tremors during motor activity present COORDINATION: [id number] test normal and gcgo-vq-[id number] test normal Data 10/15/23 08:35 10/15/23 08:35 A&P Assessment and plan (1) CVA (cerebral vascular accident): (2) Alcoholism: (3) Hypertension: (4) Seizure disorder: Coding Level of Care Code 05596 Diagnoses CVA (cerebral vascular accident) I63.9 Alcoholism F10.20 Hypertension I10 Seizure disorder G40.909 Time Spent (min) 56 Documented by User: Rusty Erickson MD 10/15/23 14:28 Providers/Chief Complaint 2 Admitting Physician: Rusty Erickson MD, hospitalist Chief Complaint: ams History of Present Illness Ezra Duvall is a 77 year old male who has past medical history of HTN, CVA- 09/25/23 with mild right sided deficits, dementia, and depression. Mr. Duvall present to the ED today from [facility] with possible CVA. When speaking with staff involved with Mr. Duvall care they mentioned his s/s this morning was as listed:mumbling, confusion, increased right-sided weakness, and right facial numbness. Eloina's normal state after his CVA in September-reported by [facility] staff was as listed: residual right-sided facial droop, slight right sided weakness, he is able to ambulate and perform ADLs independently and tolerates diet well. No fever or cough reported, patient is able to conversate normally. He was recently in the hospital, the emergency department on September 25 and received TNKase and was transferred to [facility] Mr. Duvall appears to be alert in no apparent distress, noted to be on room air. He is able to tell me his name, date of , and age. He does not know what month,year, or who the president is but is able to tell he just celebrated Thanksgiving. He reports he has a headache, 5 on a scale of 1-10. Patient states he has been nauseous, no vomiting noted. Last bowel movement 10/14, normal. Denies chest pain and shortness of breath. NIH stroke scale performed- pt scored 2. Mild right sided weakness noted, patient able to lift upper and lower extremities and hold for 10 seconds. No sensory loss noted in upper and lower extremities. I did not observe a right-sided facial droop. Patient states he does not have any family, just a couple nieces. Medications/Allergies Home Medications Medication Instructions Recorded Confirmed Last Taken Type acetaminophen 650 mg 650 mg PO Q8H PRN Pain 09/25/23 10/15/23 09/25/23 History tablet,extended release (Mapap Arthritis Pain) aspirin 81 mg tablet,delayed 81 mg PO DAILY 09/25/23 10/15/23 09/25/23 History release bisacodyl 10 mg rectal suppository 10 mg AK DAILY PRN Constipation 09/25/23 10/15/23 Unknown History cetirizine 5 mg tablet 5 mg PO DAILY 09/25/23 10/15/23 09/25/23 History folic acid 1 mg tablet 1 mg PO DAILY 09/25/23 10/15/23 09/25/23 History levetiracetam 750 mg tablet 750 mg PO BID 09/25/23 10/15/23 09/25/23 History metoprolol succinate 25 mg 25 mg PO DAILY 09/25/23 10/15/23 09/25/23 History tablet,extended release 24 hr polyethylene glycol 3350 17 17 g PO DAILY PRN Constipation 09/25/23 10/15/23 Unknown History gram/dose oral powder (Miralax) sodium phosphates 19 gram-7 118 ml AK DAILY PRN Constipation 09/25/23 10/15/23 Unknown History gram/118 mL enema (Enema) tramadol 50 mg tablet 50 mg PO Q6H PRN Pain 09/25/23 10/15/23 Unknown History acetaminophen 650 mg 650 mg PO DAILY 10/15/23 10/15/23 Unknown History tablet,extended release (Mapap Arthritis Pain) amlodipine 2.5 mg tablet 2.5 mg PO DAILY 10/15/23 10/15/23 Unknown History atorvastatin 40 mg tablet (Lipitor) 40 mg PO BEDTIME 10/15/23 10/15/23 Unknown History magnesium citrate See Rx Instructions .Route .COMPLEX 10/15/23 10/15/23 Unknown History magnesium hydroxide 400 mg/5 mL 30 ml PO DAILY PRN Constipation 10/15/23 10/15/23 Unknown History oral suspension (Milk of Magnesia) menthol 4 % topical gel (Biofreeze 1 applic topical Q4H PRN Pain 10/15/23 10/15/23 Unknown History (menthol)) sennosides 8.6 mg-docusate sodium 1 tab PO Q12H PRN Constipation 10/15/23 10/15/23 Unknown History 50 mg tablet (Stool Softener-Laxative) Allergies Allergy/AdvReac Type Severity Reaction Status Date / Time No Known Allergies Allergy Verified 10/15/23 08:52 PFSH Acute 2 PFSH: Medical History (Updated 10/15/23 @ 14:11 by Rusty Erickson MD) Depression Alcoholism CHF (congestive heart failure) Seizure disorder Hyperlipidemia Hypertension CVA (cerebral vascular accident) Social History (Updated 10/15/23 @ 14:10 by Rusty Erickson MD) Smoking and tobacco/nicotine status: former use of tobacco/nicotine Alcohol intake: former Physical Exam 2 Narrative: General Exam: Alert, in no apparent distress. Reports headache all morning. Neck supple, no lymphadenopathy, no JVD. Cardiovascular- heart rhythm normal, rate normal noted to be in the 80s. Palpable pulses 2+ bilateral radial, bilateral Lungs sound clear on auscultation, patient on room air. Denies cough. Abdomen soft, non-tender. normoactive bowel sounds. Patient last BM 10/14. : denies any difficulty urinating, able to take himself to the bathroom. Extremities: slight right sided weakness from previous CVA 09/25/23, capillary refill normal, no cyanosis or edema noted. Skin: no rashes or lesions noted, no wounds, and turgor normal. NIHSS stroke scale 2. He was marked down for diminished strength in his right upper and right lower extremity/drift Data 10/15/23 08:35 10/15/23 08:35 Other Labs: UA is reviewed and negative. LFTs calcium and albumin are all normal with exception of bilirubin slightly high at 1.5. I have ordered a chest x-ray. I reviewed the head CT and there is no evidence of acute changes Head neck CTA demonstrate no large vessel occlusion. A&P Assessment and plan (1) CVA (cerebral vascular accident): Aspirin daily Initiate Plavix 75 mg daily\ Increase statin to 80 mg of Lipitor nightly Obtain records from [facility] regarding previous stroke and workup. I do not believe there is a need to repeat as echocardiogram. It is likely he had 1 there. CTA has been performed already and there is no large vessel occlusion Hydration Permissive hypertension, with no treatment unless blood pressure rises greater than 220/120 May reinitiate antihypertensives, after 24 hours Serial neurologic exams Observation currently. Not candidate for TNKase. (2) Alcoholism: Previously was an alcoholic. He has been in the long term. He has had no alcohol intake recently. There is no need for any CIWA protocol. (3) Hypertension: Permissive hypertension will be allowed. Will not treat blood pressure unless greater than 220/120. Will Will restart his home medications tomorrow as tolerated. (4) Seizure disorder: Seizure precautions Continue home medications Plan Other medical problems as outlined in past medical history allow natural Lovenox for DVT prophylaxis Attestations 2 Medical Necessity Statement*: Will need less than 2 midnight stay for evaluation and treatment of CVA symptoms. Diagnoses CVA (cerebral vascular accident) I63.9 Alcoholism F10.20 Hypertension I10 Seizure disorder G40.909 Time Spent (min) 56
--- NOTE | 2023-10-15 15:22 | PC.NURSE ---
Patient arrived to med/surg [id number].
--- NOTE | 2023-10-15 15:33 | XRR_ITS ---
PROCEDURE INFORMATION: Exam: XR Chest Exam date and time: 10/15/2023 6:33 PM Age: 77 years old Clinical indication: Condition or disease; Other: CVA TECHNIQUE: Imaging protocol: Radiologic exam of the chest. Views: 1 view. COMPARISON: CR XR chest 1V [id number] 04/09/2019 11:49 AM FINDINGS: Lungs: No focal infiltrate or consolidation. No pulmonary vascular congestion or edema. Minimal linear atelectasis versus scarring lower left lung. Pleural spaces: No pleural effusion or pneumothorax. Heart/Mediastinum: Mild left ventricular contour with upper limits of normal cardiac size. Vasculature: Arteriosclerosis and tortuosity of the thoracic aorta with ectasia of the aortic knob. This is unchanged with prior exam of 2019. Bones/joints: Mild thoracolumbar scoliosis. XR/XR chest 1V portable [id number] IMPRESSION: No acute findings.
[2023-10-15] MEDS: clopidogrel 75 mg Tablet PO (16:35)
[2023-10-15] MEDS: enoxaparin 40 mg/0.4 mL Syringe SUBCUT (16:35)
[2023-10-15] MEDS: sodium chloride 0.9% 1,000 ML 75 ML IV (16:37)
[2023-10-15] MEDS: levETIRAcetam 500 mg Tablet 750 MG PO (17:28)
--- NOTE | 2023-10-15 18:17 | ECG_ITS ---
[facility] Test Date: 2023-10-15 Pat Name: Ezra Duvall Department: Room: 253 Gender: Male Medical Education Manager: : 1945 Requested By: Rusty Ray Order Number: [id number] Lucio MD: Oly Gipson M.D. Measurements Intervals [place] Rate: 101 P: 75 UT: 234 QRS: -77 QRSD: 111 T: 20 QT: 332 QTc: 431 Interpretive Statements SINUS TACHYCARDIA WITH FIRST DEGREE AV BLOCK INCOMPLETE RIGHT BUNDLE BRANCH BLOCK LEFT ANTERIOR FASCICULAR BLOCK [QRS AXIS <= -45, QR IN I, RS IN II] POSSIBLE ANTERIOR MYOCARDIAL INFARCTION , OF INDETERMINATE AGE INFERIOR MYOCARDIAL INFARCTION , PROBABLY OLD Compared to ECG 10/15/2023 08:25:05 First degree AV block now present Incomplete right bundle-branch block now present Ectopic atrial rhythm no longer present Myocardial infarct finding still present Electronically Signed On 10-16-2023 5:57:01 SLEEP MEDICINE PHYSICIAN by Oly Gipson M.D. [id number]
[2023-10-15] MEDS: nitroglycerin 0.4 mg sublingual Tablet SUBLINGUAL ×2 (18:52→19:01)
[2023-10-15 20:31] LABS: Troponin(5th) Baseline 26 ng/L (0-15)
--- NOTE | 2023-10-15 20:33 | ECG_ITS ---
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 Measurements Intervals [place] Rate: 94 P: 19 [place]: 241 QRS: -84 QRSD: 113 T: 25 QT: 341 QTc: 428 Interpretive Statements SINUS RHYTHM WITH FIRST DEGREE AV BLOCK WITH OCCASIONAL VENTRICULAR PREMATURE COMPLEXES LEFT ANTERIOR FASCICULAR BLOCK [QRS AXIS <= -45, QR IN I, RS IN II] POSSIBLE ANTERIOR MYOCARDIAL INFARCTION , OF INDETERMINATE AGE [30 ms Q WAVE IN V3/V4, OR R < 0.2 mV IN V4] Compared to ECG 10/15/2023 18:17:59 Ventricular premature complex(es) now present Sinus tachycardia no longer present Incomplete right bundle-branch block no longer present Myocardial infarct finding still present Electronically Signed On 10-16-2023 6:09:07 LONG LINE TEAMSTER by Oly Gipson M.D. [id number]
[2023-10-15] MEDS: atorvastatin 40 mg Tablet 80 MG PO (21:25)
[2023-10-15 22:44] LABS: Troponin 5 2HR 17.91 ng/L (0-15); Troponin 5 2HR Delta -8.09 ABS# (0-10)
[2023-10-16] VITALS (8 sets, daily range): BP systolic 111–149; BP diastolic 51–85; PULSE 70–103; RESP 14–17; TEMP 36.4–36.9; O2SAT 94–97; BMI 23.1
--- NOTE | 2023-10-16 00:20 | ECG_ITS ---
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 Measurements Intervals [place] Rate: 84 P: 19 [place]: 235 QRS: -64 QRSD: 112 T: 41 QT: 368 QTc: 436 Interpretive Statements SINUS RHYTHM WITH FIRST DEGREE AV BLOCK WITH OCCASIONAL VENTRICULAR PREMATURE COMPLEXES LEFT ANTERIOR FASCICULAR BLOCK [QRS AXIS <= -45, QR IN I, RS IN II] Compared to ECG 10/15/2023 20:53:58 Myocardial infarct finding no longer present Electronically Signed On 10-17-2023 21:36:18 PAINT MIXER HAND by Oly Gipson M.D. [id number]
[2023-10-16 01:15] LABS: Troponin 5 6HR 19.18 ng/L (0-15)
[2023-10-16] MEDS: sodium chloride 0.9% 1,000 ML 75 ML IV ×2 (05:33→20:38)
[2023-10-16] MEDS: clopidogrel 75 mg Tablet PO (08:04)
[2023-10-16] MEDS: aspirin 81 mg EC Tablet PO (08:04)
[2023-10-16] MEDS: levETIRAcetam 500 mg Tablet 750 MG PO ×2 (08:04→16:53)
--- NOTE | 2023-10-16 16:34 | PM.PN ---
Subjective Subjective: no interim events, no new complaints Vitals/I&O/Wt Last Vital Signs Temp 97.8 F 10/16/23 15:37 Pulse 78 10/16/23 15:37 Resp 16 10/16/23 15:37 BP 136/77 10/16/23 15:37 Pulse Ox 96 10/16/23 15:37 O2 Del Method Room Air 10/16/23 15:37 10/16/23 10/16/23 10/16/23 06:59 14:59 22:59 Intake Total 970 / 970 480 / 480 Output Total 125 / 350 Balance 845 / 620 480 / 480 Weight last 48 hrs Weight 68.946 kg Weight 68.946 kg Weight 70.307 kg Data 10/15/23 08:35 10/15/23 08:35 A&P Assessment and plan (1) CVA (cerebral vascular accident): Aspirin daily Initiate Plavix 75 mg daily\ Increase statin to 80 mg of Lipitor nightly Obtain records from [facility] regarding previous stroke and workup. I do not believe there is a need to repeat as echocardiogram. It is likely he had 1 there. CTA has been performed already and there is no large vessel occlusion Hydration Permissive hypertension, with no treatment unless blood pressure rises greater than 220/120 May reinitiate antihypertensives, after 24 hours Serial neurologic exams Observation currently. Not candidate for TNKase. (2) Alcoholism: Previously was an alcoholic. He has been in the detention. He has had no alcohol intake recently. There is no need for any CIWA protocol. (3) Hypertension: Permissive hypertension will be allowed. Will not treat blood pressure unless greater than 220/120. Will Will restart his home medications tomorrow as tolerated. (4) Seizure disorder: Seizure precautions Continue home medications Plan Other medical problems as outlined in past medical history allow natural Lovenox for DVT prophylaxis Plan for today. Continue management as above. No acute interim events. Awaiting transition back to SNF after recent stroke. Attestations Medical Necessity Statement*: Awaiting disposition planning Coding Level of Care Code Acute Code for g Fwd Diagnoses CVA (cerebral vascular accident) I63.9 Alcoholism F10.20 Hypertension I10 Seizure disorder G40.909
[2023-10-16] MEDS: enoxaparin 40 mg/0.4 mL Syringe SUBCUT (16:53)
[2023-10-16 18:20] LABS: Alanine Aminotransferase 8 U/L (0-41); Albumin Level 3.7 g/dL (3.5-5.2); Alkaline Phosphatase 105 U/L (40-130); Anion Gap 15.4 (5-19); Aspartate Amino Transferase 11 U/L (0-40); Blood Urea Nitrogen 10 mg/dL (8-23); Calcium 8.5 mg/dL (8.5-10.5); Carbon Dioxide 23 mmol/L (22-29); Chloride 107 mmol/L (98-107); Glucose 126 mg/dL (65-115); Osmolality Calculated 295 mOsm/kg (285-295); Potassium 3.4 mmol/L (3.5-5.1); Sodium 142 mmol/L (136-145); Total Bilirubin 1.8 mg/dL (0.15-1.2); Total Protein 6.7 g/dL (6.6-8.7)
--- NOTE | 2023-10-16 18:22 | PC.NURSE ---
PT refused to wear tele. was educated of the benefits of wearing tele.
[2023-10-16] MEDS: atorvastatin 40 mg Tablet 80 MG PO (20:38)
[2023-10-17 02:27] LABS: Basophils % 0.5 %; Eosinophils # 0.2 10^3/uL (0.0-0.8); Eosinophils % 2.6 %; Hematocrit 35.5 % (37-53); Lymphocytes # 1.7 10^3/uL (0.8-4.8); Lymphocytes % 21.9 %; Mean Corpuscular HGB Conc 31.3 g/dL (30-55); Mean Corpuscular Hemoglobin 29.9 pg (27-33); Mean Corpuscular Volume 95.7 fl (82-101); Mean Platelet Volume 10.8 fL (7.4-10.4); Monocytes # 0.7 10^3/uL (0.2-0.9); Monocytes % 9.1 %; Neutrophils % 65.5 %; Nucleated Red Blood Cells % 0 %; Platelet Count 194 10^3/cmm (157-399); Red Blood Count 3.71 10^6/uL (3.85-5.65); Red Cell Distribution Width 14.8 % (12.1-15.1); White Blood Count 7.94 10^3/uL (3.29-11.43)
[2023-10-17 03:45] VITALS: BP 121/73; PULSE 83; RESP 17; TEMP 36.6; O2SAT 93
[2023-10-17 06:00] VITALS: BMI 23.1
[2023-10-17 08:02] VITALS: BP 133/85; PULSE 95; RESP 16; TEMP 36.6; O2SAT 99
[2023-10-17] MEDS: clopidogrel 75 mg Tablet PO (08:08)
[2023-10-17] MEDS: levETIRAcetam 500 mg Tablet 750 MG PO ×2 (08:08→17:19)
[2023-10-17] MEDS: aspirin 81 mg EC Tablet PO (08:08)
[2023-10-17] MEDS: ondansetron 2 mg/ML SDV 2 mL 4 MG IVP (08:52)
[2023-10-17 11:45] VITALS: BP 132/78; PULSE 93; RESP 15; TEMP 36.6; O2SAT 96
[2023-10-17 15:53] VITALS: BP 121/71; PULSE 82; RESP 15; TEMP 36.4; O2SAT 96
--- NOTE | 2023-10-17 16:53 | P.PN_ITS ---
Subjective 2 Subjective: no acute interim events . Feels well overall. Mild right sided weakness which is unchanged. d/c IVF Medications: Reviewed: Yes Vitals/I&O/Wt Last Vital Signs Temp 97.6 F 10/17/23 15:53 Pulse 82 10/17/23 15:53 Resp 15 10/17/23 15:53 BP 121/71 10/17/23 15:53 Pulse Ox 96 10/17/23 15:53 O2 Del Method Room Air 10/17/23 15:53 10/17/23 10/17/23 10/17/23 06:59 14:59 22:59 Intake Total 480 / 480 1000 / 1480 Balance 480 / 480 1000 / 1480 Weight last 48 hrs Weight 69.088 kg Weight 68.946 kg Physical Exam 2 Narrative: General: No acute distress, AO x3 HEENT: PERRLA, pupils bilaterally equal and reactive, pallors not present Chest: Normal vesicular breath sounds, no added sounds, equal good air entry bilaterally CVS: S1-S2 regular, no murmurs, no tachycardia, no gallops, no rubs Abdomen: Soft, nontender, no organomegaly, bowel sounds present Neuro: mild rigth sided weakness compared to left. unchanged over yesterday's exam Data 10/17/23 02:11 10/16/23 17:31 A&P Assessment and plan (1) CVA (cerebral vascular accident): Continue Aspirin and Plavix 75 mg daily\ continue statin to 80 mg of Lipitor nightly awaiting echocardiogram from [facility] CTA has been performed already and there is no large vessel occlusion D/c IVF today Serial neurologic exams Observation currently. Not candidate for TNKase. BP currently optimized (2) Alcoholism: Previously was an alcoholic. He has been in the correction. He has had no alcohol intake recently. There is no need for any CIWA protocol. (3) Hypertension: BP currently optimized (4) Seizure disorder: Seizure precautions Continue home medications Plan Other medical problems as outlined in past medical history allow natural Lovenox for DVT prophylaxis Attestations 2 Medical Necessity Statement*: awaiting disposition planning , transition back to SNF for continued rehab Coding Level of Care Code Acute Code for Chg Fwd Diagnoses CVA (cerebral vascular accident) I63.9 Alcoholism F10.20 Hypertension I10 Seizure disorder G40.909
[2023-10-17] MEDS: enoxaparin 40 mg/0.4 mL Syringe SUBCUT (17:18)
[2023-10-17] MEDS: metoprolol succinate ER (24 HR) 25 mg Tablet PO (17:19)
[2023-10-17 18:23] LABS: Alanine Aminotransferase 8 U/L (0-41); Albumin Level 3.5 g/dL (3.5-5.2); Alkaline Phosphatase 92 U/L (40-130); Anion Gap 15.7 (5-19); Aspartate Amino Transferase 9 U/L (0-40); Blood Urea Nitrogen 10 mg/dL (8-23); Calcium 8.5 mg/dL (8.5-10.5); Carbon Dioxide 22 mmol/L (22-29); Chloride 105 mmol/L (98-107); Globulin 2.7 g/dL (1.3-4.6); Glucose 148 mg/dL (65-115); Osmolality Calculated 290 mOsm/kg (285-295); Potassium 3.7 mmol/L (3.5-5.1); Sodium 139 mmol/L (136-145); Total Bilirubin 1.7 mg/dL (0.15-1.2); Total Protein 6.2 g/dL (6.6-8.7)
[2023-10-17] MEDS: atorvastatin 40 mg Tablet 80 MG PO (20:15)
[2023-10-17 20:38] VITALS: BP 113/65; PULSE 70; RESP 18; TEMP 36.5; O2SAT 94
[2023-10-17 23:48] VITALS: BP 144/62; PULSE 70; RESP 17; TEMP 36.6; O2SAT 95
[2023-10-18 04:00] VITALS: BP 118/65; PULSE 66; RESP 16; TEMP 36.4; O2SAT 94
[2023-10-18 06:08] LABS: Basophils % 0.5 %; Eosinophils # 0.2 10^3/uL (0.0-0.8); Eosinophils % 2.6 %; Hematocrit 34.8 % (37-53); Lymphocytes # 2.2 10^3/uL (0.8-4.8); Lymphocytes % 27.5 %; Mean Corpuscular HGB Conc 31.6 g/dL (30-55); Mean Corpuscular Hemoglobin 30.6 pg (27-33); Mean Corpuscular Volume 96.9 fl (82-101); Mean Platelet Volume 10.8 fL (7.4-10.4); Monocytes # 0.7 10^3/uL (0.2-0.9); Monocytes % 9.2 %; Neutrophils # 4.75 10^3/uL (1.8-7.7); Neutrophils % 59.8 %; Nucleated Red Blood Cells % 0 %; Platelet Count 197 10^3/cmm (157-399); Red Blood Count 3.59 10^6/uL (3.85-5.65); Red Cell Distribution Width 15.1 % (12.1-15.1); White Blood Count 7.94 10^3/uL (3.29-11.43)
[2023-10-18 08:00] VITALS: BP 147/87; PULSE 67; RESP 16; TEMP 36.4; O2SAT 97
[2023-10-18] MEDS: aspirin 81 mg EC Tablet PO (10:16)
[2023-10-18] MEDS: levETIRAcetam 500 mg Tablet 750 MG PO (10:16)
[2023-10-18] MEDS: folic acid 1 mg Tablet PO (10:16)
[2023-10-18] MEDS: clopidogrel 75 mg Tablet PO (10:16)
[2023-10-18] MEDS: metoprolol succinate ER (24 HR) 25 mg Tablet PO (10:17)
[2023-10-18] MEDS: TRAMadol 50 mg Tablet PO (10:19)
[2023-10-18 11:50] VITALS: BP 144/86; PULSE 68; RESP 16; TEMP 36.7; O2SAT 96
--- NOTE | 2023-10-18 12:57 | P.DS_ITS ---
Discharge Providers Date of Admission: 10/15/23 13:17 Date of Discharge: October 18, 2023 Attending Provider at Admission: Rusty Erickson MD Attending Provider at Discharge: Ana More MD Primary Care Provider: Selena Dial MD, [facility] [place] Diagnoses at Discharge Discharge Diagnosis (1) CVA (cerebral vascular accident): Status: Acute (2) Alcoholism: Status: Acute (3) Hypertension: Status: Acute (4) Seizure disorder: Status: Acute Reason for Visit Reason for Visit: ams Brief History: Ezra Duvall is a 77 year old male who has past medical history of HTN, CVA- 09/25/23 with mild right sided deficits, dementia, and depression. Mr. Duvall present to the ED today from [facility] with possible CVA. When speaking with staff involved with Mr. Duvall care they mentioned his s/s this morning was as listed:mumbling, confusion, increased right-sided weakness, and right facial numbness. Eloina's normal state after his CVA in September-reported by [facility] staff was as listed: residual right-sided facial droop, slight right sided weakness, he is able to ambulate and perform ADLs independently and tolerates diet well. No fever or cough reported, patient is able to conversate normally. Mr. Duvall appears to be alert in no apparent distress, noted to be on room air. He is able to tell me his name, date of , and age. He does not know what month,year, or who the president is but is able to tell he just celebrated Thanksgiving. He reports he has a headache, 5 on a scale of 1-10. Patient states he has been nauseous, no vomiting noted. Last bowel movement 10/14, normal. Denies chest pain and shortness of breath. NIH stroke scale performed- pt scored 2. Mild right sided weakness noted, patient able to lift upper and lower extremities and hold for 10 seconds. No sensory loss noted in upper and lower extremities. I did not observe a right-sided facial droop. Patient sta rosalee he does not have any family, just a couple nieces. Hospital Course Hospital Course Patient presented with stroke symptoms. Patient recently got TNKase earlier this month and he is recovering without significant residual from that. He was not a candidate for TNKase at this time. CTA showed no large vessel thrombus. He is on Plavix aspirin. Statin was increased during this hospital stay. Patient seems to be at baseline will be discharged back to [facility] today. He stated he does not want any family called at this time of discharge. He states he will talk to them himself once he gets to the [facility]. Physical Exam Narrative: General: No acute distress, AO x3 HEENT: PERRLA, pupils bilaterally equal and reactive, pallors not present Chest: Normal vesicular breath sounds, no added sounds, equal good air entry bilaterally CVS: S1-S2 regular, no murmurs, no tachycardia, no gallops, no rubs Abdomen: Soft, nontender, no organomegaly, bowel sounds present Neuro: mild rigth sided weakness compared to left. No major focal neurological deficits. Discharge Data Studies Completed and Pending Completed Studies During Hospitalization Category Date Time Status CT head wo con* [id number] Stat Cat Scan 10/15/23 08:44 Completed CTA head neck [CT angio headneck* [id number]] Stat Cat Scan 10/15/23 11:17 Completed XR chest 1V portable [id number] Routine Exams 10/15/23 15:33 Completed Radiology Impressions Chest X-Ray 10/15/23 15:33 IMPRESSION: No acute findings. Laboratory Results WBC 7.94 10^3/uL (3.29-11.43) 10/18/23 05:59 Corrected WBC Cancelled 10/18/23 02:23 RBC 3.59 10^6/uL (3.85-5.65) L 10/18/23 05:59 Hgb 11.00 g/dL (11.27-16.99) L 10/18/23 05:59 Hct 34.8 % (37-53) L 10/18/23 05:59 MCV 96.9 fl (82-101) 10/18/23 05:59 MCH 30.6 pg (27-33) 10/18/23 05:59 MCHC 31.6 g/dL (30-55) 10/18/23 05:59 RDW 15.1 % (12.1-15.1) 10/18/23 05:59 Plt Count 197 10^3/cmm (157-399) 10/18/23 05:59 MPV 10.8 fL (7.4-10.4) H 10/18/23 05:59 Gran % Cancelled 10/18/23 02:23 Neut % (Auto) 59.8 % 10/18/23 05:59 Lymph % (Auto) 27.5 % 10/18/23 05:59 [place] % (Auto) 9.2 % 10/18/23 05:59 Eos % (Auto) 2.6 % 10/18/23 05:59 Baso % (Auto) 0.5 % 10/18/23 05:59 Neut # (Auto) 4.75 10^3/uL (1.8-7.7) 10/18/23 05:59 Lymph # (Auto) 2.2 10^3/uL (0.8-4.8) 10/18/23 05:59 [place] # (Auto) 0.7 10^3/uL (0.2-0.9) 10/18/23 05:59 Eos # (Auto) 0.2 10^3/uL (0.0-0.8) 10/18/23 05:59 Baso # (Auto) 0.0 10^3/uL (0.0-0.1) 10/18/23 05:59 Absolute Gran (auto) Cancelled 10/18/23 02:23 Nucleated RBC % (auto) 0 % 10/18/23 05:59 Nucleated RBCs # 0.0 /100WBC 10/18/23 05:59 Sodium 139 mmol/L (136-145) 10/17/23 17:51 Potassium 3.7 mmol/L (3.5-5.1) 10/17/23 17:51 Chloride 105 mmol/L (98-107) 10/17/23 17:51 Carbon Dioxide 22 mmol/L (22-29) 10/17/23 17:51 Anion Gap 15.7 (5-19) 10/17/23 17:51 BUN 10 mg/dL (8-23) 10/17/23 17:51 Creatinine 0.8 mg/dL (0.7-1.2) 10/17/23 17:51 GFR Calculation Not Reportable 10/17/23 17:51 Glucose 148 mg/dL (65-115) H 10/17/23 17:51 Calculated Osmolality 290 mOsm/kg (285-295) 10/17/23 17:51 Calcium 8.5 mg/dL (8.5-10.5) 10/17/23 17:51 Total Bilirubin 1.7 mg/dL (0.15-1.2) H 10/17/23 17:51 AST 9 U/L (0-40) 10/17/23 17:51 ALT 8 U/L (0-41) 10/17/23 17:51 Alkaline Phosphatase 92 U/L (40-130) 10/17/23 17:51 Troponin T Baseline 26 ng/L (0-15) H 10/15/23 20:04 Troponin T 120 Minute 17.91 ng/L (0-15) H 10/15/23 22:15 Delta Troponin T -8.09 ABS# (0-10) L 10/15/23 22:15 Troponin T Hi Sens 6Hr 19.18 ng/L (0-15) H 10/16/23 00:50 Troponin T Hi Sens 6Hr Delta -6.82 ng/L (0-12) L 10/16/23 00:50 Total Protein 6.2 g/dL (6.6-8.7) L 10/17/23 17:51 Albumin 3.5 g/dL (3.5-5.2) 10/17/23 17:51 Globulin 2.7 g/dL (1.3-4.6) 10/17/23 17:51 Urine Color Yellow (Yellow) 10/15/23 09:04 Urine Appearance Clear (CLEAR) 10/15/23 09:04 Urine pH 7 (5-7) 10/15/23 09:04 Ur Specific [place] 1.000 (1.005-1.030) L 10/15/23 09:04 Urine Protein Neg (Negative) 10/15/23 09:04 Urine Glucose (UA) Norm (Normal) 10/15/23 09:04 Urine Ketones Negative (Negative) 10/15/23 09:04 Urine Blood Neg (Negative) 10/15/23 09:04 Urine Nitrate Negative (Negative) 10/15/23 09:04 Urine Bilirubin Neg (Negative) 10/15/23 09:04 Urine Urobilinogen Norm mg/dL (Negative) 10/15/23 09:04 Ur Leukocyte Esterase Negative (Negative) 10/15/23 09:04 Vitals Last Vital Signs Temp 98.1 F 10/18/23 11:50 Pulse 68 10/18/23 11:50 Resp 16 10/18/23 11:50 BP 144/86 10/18/23 11:50 Pulse Ox 96 10/18/23 11:50 O2 Del Method Room Air 10/18/23 11:50 O2 Flow Rate 2 10/18/23 08:00 Discharge Plan Discharge Patient Disposition: Xfer SNF Condition: Stable Prescriptions: New clopidogrel 75 mg Tablet 75 mg PO DAILY Qty: 30 0RF Continued cetirizine 5 mg Tablet 5 mg PO DAILY aspirin [Aspir-81] 81 mg Tablet,Delayed Release (Dr/Ec) 81 mg PO DAILY tramadol 50 mg Tablet 50 mg PO Q6H PRN (Reason: Pain) acetaminophen [Mapap Arthritis Pain] 650 mg Tablet Extended Release 650 mg PO Q8H PRN (Reason: Pain) bisacodyl 10 mg Suppository 10 mg IN DAILY PRN (Reason: Constipation) Enema 19-7 gram/118 mL Enema 118 ml IN DAILY PRN (Reason: Constipation) folic acid 1 mg Tablet 1 mg PO DAILY levetiracetam 750 mg Tablet 750 mg PO BID metoprolol succinate 25 mg Tablet Extended Release 24 Hr 25 mg PO DAILY polyethylene glycol 3350 [Miralax] 17 gram/dose Powder 17 g PO DAILY PRN (Reason: Constipation) Rx Instructions: mix with 8oz of water or juice amlodipine 2.5 mg Tablet 2.5 mg PO DAILY magnesium citrate Solution See Rx Instructions .ROUTE .COMPLEX Rx Instructions: give 8 ounces po in the afternoon for 1 day (start date 10/24/23 end date 10/25/23)(another start date 11/09/23 end date 11/10/23) Biofreeze (menthol) 4 % Gel 1 applic TOPICAL Q4H PRN (Reason: Pain) Rx Instructions: apply to back Stool Softener-Laxative 8.6-50 mg Tablet 1 tab PO Q12H PRN (Reason: Constipation) Mapap Arthritis Pain 650 mg Tablet Extended Release 650 mg PO DAILY Milk of Magnesia 400 mg/5 mL Suspension 30 ml PO DAILY PRN (Reason: Constipation) Changed Lipitor 40 mg Tablet 80 mg PO BEDTIME Qty: 30 0RF Discharge Orders: Discharge Order (Routine); Ordered 10/18/23 Ordered By: Ana Argenis Referrals: Selena Dial MD, [facility] [Primary Care Provider] - 4-7 days Discharge Diet: As Directed Discharge Activity: Increase activity as tolerated and As per PT/OT instructions Patient Instructions: Hyponatremia (ED), Benzodiazepine Use Disorder (ED), Dementia (ED), Non-diabetic Hypoglycemia (ED), Hypoglycemia in a Person with Diabetes (ED), Concussion (ED), Alcohol Intoxication (ED), Subarachnoid Hemorrhage (GEN), Altered Mental Status (ED), Opioid Safety Activity Restrictions/Additional Instructions: dysphagia level 5 diet, minced and moist Discharge Attestations Time Spent in Discharge Care*: greater than 30 min Quality Metrics Clinical Quality Measures [ No reported AMI, CVA or VTE this stay] Coding Level of Care Code 31123 Total time (in minutes) for Discharge: 35 Diagnoses CVA (cerebral vascular accident) I63.9 Alcoholism F10.20 Hypertension I10 Seizure disorder G40.909
--- NOTE | 2023-10-18 13:04 | PM.DCS ---
Discharge Providers Date of Admission: 10/15/23 13:17 Date of Discharge: October 18, 2023 Attending Provider at Admission: Rusty Erickson MD Attending Provider at Discharge: Ana More MD Primary Care Provider: Selena Dial MD, [facility] [place] Diagnoses at Discharge Discharge Diagnosis (1) CVA (cerebral vascular accident): Status: Acute (2) Alcoholism: Status: Acute (3) Hypertension: Status: Acute (4) Seizure disorder: Status: Acute Reason for Visit Reason for Visit: [facility] Hospital Course Hospital Course Patient presented with stroke symptoms. Patient recently got TNKase earlier this month and he is recovering without significant residual from that. He was not a candidate for TNKase at this time. CTA showed no large vessel thrombus. He is on Plavix aspirin. Statin was increased during this hospital stay. Patient seems to be at baseline will be discharged back to [facility] today. He stated he does not want any family called at this time of discharge. He states he will talk to them himself once he gets to the correction. Discharge Data Studies Completed and Pending Completed Studies During Hospitalization Category Date Time Status CT head wo con* [id number] Stat Cat Scan 10/15/23 08:44 Completed CTA head neck [CT angio headneck* 33510/17157] Stat Cat Scan 10/15/23 11:17 Completed XR chest 1V portable [id number] Routine Exams 10/15/23 15:33 Completed Radiology Impressions Chest X-Ray 10/15/23 15:33 IMPRESSION: No acute findings. Laboratory Results WBC 7.94 10^3/uL (3.29-11.43) 10/18/23 05:59 Corrected WBC Cancelled 10/18/23 02:23 RBC 3.59 10^6/uL (3.85-5.65) L 10/18/23 05:59 Hgb 11.00 g/dL (11.27-16.99) L 10/18/23 05:59 Hct 34.8 % (37-53) L 10/18/23 05:59 MCV 96.9 fl (82-101) 10/18/23 05:59 MCH 30.6 pg (27-33) 10/18/23 05:59 MCHC 31.6 g/dL (30-55) 10/18/23 05:59 RDW 15.1 % (12.1-15.1) 10/18/23 05:59 Plt Count 197 10^3/cmm (157-399) 10/18/23 05:59 MPV 10.8 fL (7.4-10.4) H 10/18/23 05:59 Gran % Cancelled 10/18/23 02:23 Neut % (Auto) 59.8 % 10/18/23 05:59 Lymph % (Auto) 27.5 % 10/18/23 05:59 [place] % (Auto) 9.2 % 10/18/23 05:59 Eos % (Auto) 2.6 % 10/18/23 05:59 Baso % (Auto) 0.5 % 10/18/23 05:59 Neut # (Auto) 4.75 10^3/uL (1.8-7.7) 10/18/23 05:59 Lymph # (Auto) 2.2 10^3/uL (0.8-4.8) 10/18/23 05:59 [place] # (Auto) 0.7 10^3/uL (0.2-0.9) 10/18/23 05:59 Eos # (Auto) 0.2 10^3/uL (0.0-0.8) 10/18/23 05:59 Baso # (Auto) 0.0 10^3/uL (0.0-0.1) 10/18/23 05:59 Absolute Gran (auto) Cancelled 10/18/23 02:23 Nucleated RBC % (auto) 0 % 10/18/23 05:59 Nucleated RBCs # 0.0 /100WBC 10/18/23 05:59 Sodium 139 mmol/L (136-145) 10/17/23 17:51 Potassium 3.7 mmol/L (3.5-5.1) 10/17/23 17:51 Chloride 105 mmol/L (98-107) 10/17/23 17:51 Carbon Dioxide 22 mmol/L (22-29) 10/17/23 17:51 Anion Gap 15.7 (5-19) 10/17/23 17:51 BUN 10 mg/dL (8-23) 10/17/23 17:51 Creatinine 0.8 mg/dL (0.7-1.2) 10/17/23 17:51 GFR Calculation Not Reportable 10/17/23 17:51 Glucose 148 mg/dL (65-115) H 10/17/23 17:51 Calculated Osmolality 290 mOsm/kg (285-295) 10/17/23 17:51 Calcium 8.5 mg/dL (8.5-10.5) 10/17/23 17:51 Total Bilirubin 1.7 mg/dL (0.15-1.2) H 10/17/23 17:51 AST 9 U/L (0-40) 10/17/23 17:51 ALT 8 U/L (0-41) 10/17/23 17:51 Alkaline Phosphatase 92 U/L (40-130) 10/17/23 17:51 Troponin T Baseline 26 ng/L (0-15) H 10/15/23 20:04 Troponin T 120 Minute 17.91 ng/L (0-15) H 10/15/23 22:15 Delta Troponin T -8.09 ABS# (0-10) L 10/15/23 22:15 Troponin T Hi Sens 6Hr 19.18 ng/L (0-15) H 10/16/23 00:50 Troponin T Hi Sens 6Hr Delta -6.82 ng/L (0-12) L 10/16/23 00:50 Total Protein 6.2 g/dL (6.6-8.7) L 10/17/23 17:51 Albumin 3.5 g/dL (3.5-5.2) 10/17/23 17:51 Globulin 2.7 g/dL (1.3-4.6) 10/17/23 17:51 Urine Color Yellow (Yellow) 10/15/23 09:04 Urine Appearance Clear (CLEAR) 10/15/23 09:04 Urine pH 7 (5-7) 10/15/23 09:04 Ur Specific [place] 1.000 (1.005-1.030) L 10/15/23 09:04 Urine Protein Neg (Negative) 10/15/23 09:04 Urine Glucose (UA) Norm (Normal) 10/15/23 09:04 Urine Ketones Negative (Negative) 10/15/23 09:04 Urine Blood Neg (Negative) 10/15/23 09:04 Urine Nitrate Negative (Negative) 10/15/23 09:04 Urine Bilirubin Neg (Negative) 12/01/23 09:04 Urine Urobilinogen Norm mg/dL (Negative) 10/15/23 09:04 Ur Leukocyte Esterase Negative (Negative) 10/15/23 09:04 Vitals Last Vital Signs Temp 98.1 F 10/18/23 11:50 Pulse 68 10/18/23 11:50 Resp 16 10/18/23 11:50 BP 144/86 10/18/23 11:50 Pulse Ox 96 10/18/23 11:50 O2 Del Method Room Air 10/18/23 11:50 O2 Flow Rate 2 10/18/23 08:00 Discharge Plan Discharge Patient Disposition: Xfer SNF Condition: Stable Prescriptions: New clopidogrel 75 mg Tablet 75 mg PO DAILY Qty: 30 0RF Continued cetirizine 5 mg Tablet 5 mg PO DAILY aspirin [Aspir-81] 81 mg Tablet,Delayed Release (Dr/Ec) 81 mg PO DAILY tramadol 50 mg Tablet 50 mg PO Q6H PRN (Reason: Pain) acetaminophen [Mapap Arthritis Pain] 650 mg Tablet Extended Release 650 mg PO Q8H PRN (Reason: Pain) bisacodyl 10 mg Suppository 10 mg ND DAILY PRN (Reason: Constipation) Enema 19-7 gram/118 mL Enema 118 ml ND DAILY PRN (Reason: Constipation) folic acid 1 mg Tablet 1 mg PO DAILY levetiracetam 750 mg Tablet 750 mg PO BID metoprolol succinate 25 mg Tablet Extended Release 24 Hr 25 mg PO DAILY polyethylene glycol 3350 [Miralax] 17 gram/dose Powder 17 g PO DAILY PRN (Reason: Constipation) Rx Instructions: mix with 8oz of water or juice amlodipine 2.5 mg Tablet 2.5 mg PO DAILY magnesium citrate Solution See Rx Instructions .ROUTE .COMPLEX Rx Instructions: give 8 ounces po in the afternoon for 1 day (start date 10/24/23 end date 10/25/23)(another start date 11/09/23 end date 11/10/23) Biofreeze (menthol) 4 % Gel 1 applic TOPICAL Q4H PRN (Reason: Pain) Rx Instructions: apply to back Stool Softener-Laxative 8.6-50 mg Tablet 1 tab PO Q12H PRN (Reason: Constipation) Mapap Arthritis Pain 650 mg Tablet Extended Release 650 mg PO DAILY Milk of Magnesia 400 mg/5 mL Suspension 30 ml PO DAILY PRN (Reason: Constipation) Changed Lipitor 40 mg Tablet 80 mg PO BEDTIME Qty: 30 0RF Discharge Orders: Discharge Order (Routine); Ordered 10/18/23 Ordered By: Ana More Referrals: Selena Dial MD, [facility] [place] [Primary Care Provider] - 4-7 days Discharge Diet: As Directed Discharge Activity: Increase activity as tolerated and As per PT/OT instructions Patient Instructions: Hyponatremia (ED), Benzodiazepine Use Disorder (ED), Dementia (ED), Non-diabetic Hypoglycemia (ED), Hypoglycemia in a Person with Diabetes (ED), Concussion (ED), Alcohol Intoxication (ED), Subarachnoid Hemorrhage (GEN), Altered Mental Status (ED), Opioid Safety Activity Restrictions/Additional Instructions: dysphagia level 5 diet, minced and moist Discharge Attestations Time Spent in Discharge Care*: greater than 30 min Quality Metrics Clinical Quality Measures [ No reported AMI, CVA or VTE this stay] Coding Level of Care Code 53174 Total time (in minutes) for Discharge: 35 Diagnoses CVA (cerebral vascular accident) I63.9 Alcoholism F10.20 Hypertension I10 Seizure disorder G40.909
[2023-10-18 14:00] VITALS: PULSE 0
== END 2023-10-18 16:21 | disposition skilled nursing facility (03) ==
LOC: ER 13:27 → MEDSURG 13:55
PROVIDERS: Student in an Organized Health Care Education/Training Program; Admitting Provider Internal Medicine; Emergency Provider Family Medicine; PCP Family Medicine; Visit Provider Internal Medicine
DX: I63.9 Cerebral infarction, unspecified (principal); F10.20 Alcohol dependence, uncomplicated; I10 Essential (primary) hypertension; G40.909 Epilepsy, unspecified, not intractable, without status epilepticus; I44.30 Unspecified atrioventricular block; E78.5 Hyperlipidemia, unspecified; R91.1 Solitary pulmonary nodule
CPT/HCPCS: 36415; 70450; 70496; 70498; 71045; 80053; 81003; 84484; 85025; 92523; 92610; 93005; 96372; 97116; 97161; 97165; 97535; 99285; G0378; J1650; J2405; J7030; Q9967

== ENCOUNTER 2024-07-02 18:58 | Emergency (ER) | payer MEDICAID, SELFPAY ==
[2024-07-02] VITALS (9 sets, daily range): BP systolic 100–133; BP diastolic 67–81; PULSE 74–92; RESP 18; TEMP 36.6; O2SAT 92–97; BMI 24.3
--- NOTE | 2024-07-02 19:21 | CTR_ITS ---
PROCEDURE INFORMATION: Exam: CT Head Without Contrast Exam date and time: 07/02/2024 7:51 PM Age: 78 years old Clinical indication: Weakness, extremity; Patient HX: EMS arrival from alf for left sided weakness. History of CVA and aortic aneurysm. TECHNIQUE: Imaging protocol: Computed tomography of the head without contrast. Radiation optimization: All CT scans at this facility use at least one of these dose optimization techniques: automated exposure control; mA and/or kV adjustment per patient size (includes targeted exams where dose is matched to clinical indication); or iterative reconstruction. COMPARISON: CT angio headneck* [id number] 10/15/2023 11:43 AM RADIATION DOSE METRICS: Total DLP (mGy-cm): 1096.44 FINDINGS: Brain: Diffuse cerebral volume loss noted throughout. Low attenuation noted in the white matter. No mass effect. No intra-axial or extra-axial hemorrhage. Preserved gutierrez-white interfaces. Prominent extra-axial CSF spaces are stable from prior. No visible membrane. Cerebral ventricles: Mild ex vacuo ventriculomegaly. Paranasal sinuses: Visualized sinuses are unremarkable. No fluid levels. Mastoid air cells: Visualized mastoid air cells are well aerated. Bones: No destructive lesion. No acute fracture. Soft tissues: Unremarkable. CT/CT head wo con* [id number] IMPRESSION: No evidence of acute intracranial hemorrhage, mass effect, or edema. Greater than expected cerebral volume loss for age. Stable prominence of the extra-axial CSF spaces without membrane.
--- NOTE | 2024-07-02 19:21 | XRR_ITS ---
PROCEDURE INFORMATION: Exam: XR Chest Exam date and time: 07/02/2024 7:44 PM Age: 78 years old Clinical indication: Patient HX: EMS arrival from [place] for left sided weakness. History of CVA and aortic aneurysm. TECHNIQUE: Imaging protocol: Radiologic exam of the chest. Views: 1 view. COMPARISON: CR XR chest 1V portable [id number] 10/15/2023 6:33 PM FINDINGS: Lungs: Clear, symmetrically inflated lungs. Pleural spaces: No pleural effusion. No pneumothorax. Heart/Mediastinum: Cardiac silhouette is normal in size for technique. Vasculature: Tortuous ectatic aorta is unchanged from prior exam approximately 9 months ago. Bones/joints: Age appropriate. XR/XR chest 1V portable [id number] IMPRESSION: No acute cardiopulmonary abnormality. Stable appearance of the tortuous aorta.
--- NOTE | 2024-07-02 19:22 | ECG_ITS ---
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 Measurements Intervals [place] Rate: 87 P: 69 NM: 218 QRS: -82 QRSD: 113 T: 42 QT: 357 QTc: 432 Interpretive Statements SINUS RHYTHM WITH FIRST DEGREE AV BLOCK POSSIBLE ANTERIOR MYOCARDIAL INFARCTION , OF INDETERMINATE AGE [30 ms Q WAVE IN V3/V4, OR R < 0.2 mV IN V4] INFERIOR MYOCARDIAL INFARCTION , PROBABLY OLD [40+ ms Q WAVE AND/OR ST/T ABNORMALITY IN II/aVF] Compared to ECG 10/16/2023 00:20:52 Myocardial infarct finding now present Left anterior fascicular block no longer present Electronically Signed On 07-02-2024 20:05:53 CDT by Bhavesh James M.D. [id number]
--- NOTE | 2024-07-02 19:23 | W.ED.NEUROSD ---
HPI - Neuro Symptoms/Deficit General: Chief Complaint: Neuro Symptoms/Deficit Stated Complaint: WEAKNESS Time Seen by Provider: 07/02/24 19:00 History of Present Illness: 78-year-old male gentleman who had a stroke last week. He was treated in outside hospital in [place] for this. He was not given thrombolytics or thrombectomy according to him. He has some residual left-sided weakness he says. Left-sided weakness was noted in the [place] [facility] around 540 today. The patient himself does not believe his weakness is any different from prior. He has had a Ochoa catheter in place since his stroke. He relates a nonproductive cough on and off. He denies fever. He denies recent vision change. Again, he says his left-sided weakness is about the same since last week. His left lower extremity is more weak than his upper extremity. Related Data Home Medications Medication Instructions Recorded Confirmed acetaminophen 650 mg 650 mg PO Q8H PRN Pain 09/25/23 10/15/23 tablet,extended release (Mapap Arthritis Pain) aspirin 81 mg tablet,delayed 81 mg PO DAILY 09/25/23 10/15/23 release bisacodyl 10 mg rectal suppository 10 mg ME DAILY PRN Constipation 09/25/23 10/15/23 cetirizine 5 mg tablet 5 mg PO DAILY 09/25/23 10/15/23 folic acid 1 mg tablet 1 mg PO DAILY 09/25/23 10/15/23 levetiracetam 750 mg tablet 750 mg PO BID 09/25/23 10/15/23 metoprolol succinate 25 mg 25 mg PO DAILY 09/25/23 10/15/23 tablet,extended release 24 hr polyethylene glycol 3350 17 17 g PO DAILY PRN Constipation 09/25/23 10/15/23 gram/dose oral powder (Miralax) sodium phosphates 19 gram-7 118 ml ME DAILY PRN Constipation 09/25/23 10/15/23 gram/118 mL enema (Enema) tramadol 50 mg tablet 50 mg PO Q6H PRN Pain 09/25/23 10/15/23 acetaminophen 650 mg 650 mg PO DAILY 10/15/23 10/15/23 tablet,extended release (Mapap Arthritis Pain) amlodipine 2.5 mg tablet 2.5 mg PO DAILY 10/15/23 10/15/23 magnesium citrate See Rx Instructions .Route .COMPLEX 10/15/23 10/15/23 magnesium hydroxide 400 mg/5 mL 30 ml PO DAILY PRN Constipation 10/15/23 10/15/23 oral suspension (Milk of Magnesia) menthol 4 % topical gel (Biofreeze 1 applic topical Q4H PRN Pain 10/15/23 10/15/23 (menthol)) sennosides 8.6 mg-docusate sodium 1 tab PO Q12H PRN Constipation 10/15/23 10/15/23 50 mg tablet (Stool Softener-Laxative) Previous Rx's Medication Instructions Recorded atorvastatin 40 mg tablet (Lipitor) 80 mg (2 x 40 mg) PO BEDTIME #30 10/18/23 tabs clopidogrel 75 mg tablet 75 mg PO DAILY #30 tabs 10/18/23 cefdinir 300 mg capsule 300 mg PO BID #14 caps 07/02/24 Allergies Allergy/AdvReac Type Severity Reaction Status Date / Time No Known Allergies Allergy Verified 07/02/24 19:10 [facility] PFSH: Medical History Depression Alcoholism CHF (congestive heart failure) Seizure disorder Hyperlipidemia Hypertension CVA (cerebral vascular accident) Social History Smoking and tobacco/nicotine status: former use of tobacco/nicotine Alcohol intake: former NIH stroke score NIHSS: Level Of Consciousness - 1a: 0 Level Of Consciousness Questions - 1b: Both Correct Level Of Consciousness Commands - 1c: Both Correct Best Gaze - 2: Normal Visual Georges - 3: No Visual Loss Facial Palsy - 4: Normal Motor Arm Right - 5: No Drift Motor Arm Left - 5: Drift Motor Leg Right - 6: Drift Motor Leg Left - 6: Drift Limb Ataxia - 7: Present In One Limb Sensory - 8: Normal Best Language - 9: No Aphasia Dysarthia - 10: Normal Extinction And Inattention - 11: 0 Score: Total Score: 4 Physical Exam Const: COMMON NORMALS: no acute distress GENERAL APPEARANCE: cooperative and frail appearing; not ill appearing NUTRITIONAL APPEARANCE: thin ORIENTATION/CONSCIOUSNESS: Yes awake, Yes oriented to person and Yes oriented to place HENMT: COMMON NORMALS: normocephalic, atraumatic and Normal external nose present HEAD & SCALP: normocephalic and atraumatic FACE & SINUS: normal facial exam and face symmetric NOSE: Normal external nose present Eye: COMMON NORMALS: Equal, round and reactive pupils present and EOMs intact bilaterally PUPIL: Yes Equal, round and reactive pupils present Neck/C-Spine: GENERAL: Yes trachea midline Chest: CHEST: Yes Symmetrical chest wall rise Resp: COMMON NORMALS: normal respiratory effort, No retractions, No use of accessory muscles and clear to auscultation bilaterally AUSCULTATION: clear to auscultation bilaterally Cardio: COMMON NORMALS: regular rate and regular rhythm RATE: regular rate RHYTHM: regular rhythm GI: COMMON NORMALS: Normal to inspection, nondistended, normoactive bowel sounds present Extremity: COMMON NORMALS: no pedal edema Neuro: GLADIS COMA SCALE: document GCS findings Gladis coma scale eye opening: Spontaneous Gladis coma scale verbal response: Orientated [place] coma scale motor response: Obey commands [place] coma scale total score: 15 SENSORIUM/ORIENTATION: Yes oriented to person and Yes oriented to place SENSORY EXAM: Yes extremities (intact) Psych: COMMON NORMALS: speech normal SPEECH: Yes normal speech Skin: COMMON NORMALS: no rashes or lesions noted GENERAL SKIN EXAM: no rashes or lesions noted Course Vital Signs: Vital signs: Vital Signs Temperature 97.9 F 07/02/24 19:04 Pulse Rate 82 07/02/24 23:00 Respiratory Rate 18 07/02/24 19:04 Blood Pressure 100/72 07/02/24 23:00 Pulse Oximetry 92 07/02/24 23:00 Oxygen Delivery Me thod Room Air 07/02/24 19:04 MDM - Neuro Symptoms/Deficit Medical Decision Making 78-year-old male gentleman with a history of stroke last week. No stroke evident on CT either old or acute today. His vitals are stable. Patient believes his weakness is the same as it was last week with a stroke. He has an indwelling Ochoa catheter. He has a urinary tract infection on fresh urinalysis today. His white blood cell count is 10.6. BUN is 26, creatinine is 1.2. His blood sugar is elevated. He is given a liter of fluid. He is given Rocephin for the UTI. He will go back on cefdinir to complete a course for urinary tract infection. Chest x-ray is negative. COVID antigen is negative. Lab Data 07/02/24 19:39 07/02/24 19:39 Radiology Impressions Chest X-Ray 07/02/24 19:21 IMPRESSION: No acute cardiopulmonary abnormality. Stable appearance of the tortuous aorta. Head CT 07/02/24 19:21 IMPRESSION: No evidence of acute intracranial hemorrhage, mass effect, or edema. Greater than expected cerebral volume loss for age. Stable prominence of the extra-axial CSF spaces without membrane. Laboratory Results WBC 10.63 10^3/uL (3.29-11.43) 07/02/24 19:39 RBC 3.85 10^6/uL (3.85-5.65) 07/02/24 19:39 Hgb 11.50 g/dL (11.27-16.99) 07/02/24 19:39 Hct 37.9 % (37-53) 07/02/24 19:39 MCV 98.4 fl (82-101) 07/02/24 19:39 MCH 29.9 pg (27-33) 07/02/24 19:39 MCHC 30.3 g/dL (30-55) 07/02/24 19:39 RDW 13.9 % (12.1-15.1) 07/02/24 19:39 Plt Count 395 10^3/cmm (157-399) 07/02/24 19:39 MPV 10.1 fL (7.4-10.4) 07/02/24 19:39 Neut % (Auto) 73.1 % 07/02/24 19:39 Lymph % (Auto) 15.2 % 07/02/24 19:39 [place] % (Auto) 7.9 % 07/02/24 19:39 Eos % (Auto) 2.3 % 07/02/24 19:39 Baso % (Auto) 0.7 % 07/02/24 19:39 Neut # (Auto) 7.77 10^3/uL (1.8-7.7) H 07/02/24 19:39 Lymph # (Auto) 1.6 10^3/uL (0.8-4.8) 07/02/24 19:39 [place] # (Auto) 0.8 10^3/uL (0.2-0.9) 07/02/24 19:39 Eos # (Auto) 0.2 10^3/uL (0.0-0.8) 07/02/24 19:39 Baso # (Auto) 0.1 10^3/uL (0.0-0.1) 07/02/24 19:39 Nucleated RBC % (auto) 0 % 07/02/24 19:39 Nucleated RBCs # 0.0 /100WBC 07/02/24 19:39 PT 14.60 SECONDS (12.1-14.9) 07/02/24 19:39 INR 1.11 (0.8-1.2) 07/02/24 19:39 APTT 35.0 SECONDS (23.9-36.7) 07/02/24 19:39 Sodium 138 mmol/L (136-145) 07/02/24 19:39 Potassium 4.6 mmol/L (3.5-5.1) 07/02/24 19:39 Chloride 100 mmol/L (98-107) 07/02/24 19:39 Carbon Dioxide 28 mmol/L (22-29) 07/02/24 19:39 Anion Gap 14.6 (5-19) 07/02/24 19:39 BUN 26 mg/dL (8-23) H 07/02/24 19:39 Creatinine 1.2 mg/dL (0.7-1.2) 07/02/24 19:39 GFR Calculation Not Reportable 07/02/24 19:39 Glucose 231 mg/dL (65-115) H 07/02/24 19:39 Calculated Osmolality 298 mOsm/kg (285-295) H 07/02/24 19:39 Calcium 8.7 mg/dL (8.5-10.5) 07/02/24 19:39 Total Bilirubin 0.9 mg/dL (0.15-1.2) 07/02/24 19:39 AST 18 U/L (0-40) 07/02/24 19:39 ALT < 5 U/L (0-41) 07/02/24 19:39 Alkaline Phosphatase 87 U/L (40-130) 07/02/24 19:39 C-Reactive Protein 40.9 mg/L (0.0-4.9) H 07/02/24 19:39 Total Protein 6.8 g/dL (6.6-8.7) 07/02/24 19:39 Albumin 3.4 g/dL (3.5-5.2) L 07/02/24 19:39 Globulin 3.4 g/dL (1.3-4.6) 07/02/24 19:39 Urine Color Yellow (Yellow) 07/02/24 21:12 Urine Appearance Cloudy (CLEAR) A 07/02/24 21:12 Urine pH 6.0 (5-7) 07/02/24 21:12 Ur Specific [place] 1.029 (1.005-1.030) 07/02/24 21:12 Urine Protein 2+ (Negative) A 07/02/24 21:12 Urine Glucose (UA) Negative (Normal) 07/02/24 21:12 Urine Ketones 1+ (Negative) H 07/02/24 21:12 Urine Blood 2+ (Negative) A 07/02/24 21:12 Urine Nitrate Negative (Negative) 07/02/24 21:12 Urine Bilirubin Negative (Negative) 07/02/24 21:12 Urine Urobilinogen 1.0 mg/dL (Negative) 07/02/24 21:12 Ur Leukocyte Esterase 1+ (Negative) A 07/02/24 21:12 Urine RBC 6-10 /hpf (0-2) 07/02/24 21:12 Urine WBC >100 /hpf (0-5) H 07/02/24 21:12 Ur Squamous Epith Cells 0-5 /hpf (0-5) 07/02/24 21:12 Amorphous Sediment Not Reportable 07/02/24 21:12 Urine Bacteria 4+ /hpf (NONE) H 07/02/24 21:12 Hyaline Casts 0.40 /lpf 07/02/24 21:12 SARS-CoV-2 Ag (Rapid) negative (Negative) 07/02/24 20:29 All radiology interpretation(s) finalized by discharge Discharge Plan Discharge Patient Disposition: Home Clinical Impression: Weakness, Acute UTI, Indwelling Ochoa catheter present Condition: Stable Prescriptions: New cefdinir 300 mg capsule 300 mg PO BID Qty: 14 0RF No Action cetirizine 5 mg Tablet 5 mg PO DAILY aspirin 81 mg Tablet,Delayed Release (Dr/Ec) 81 mg PO DAILY tramadol 50 mg Tablet 50 mg PO Q6H PRN (Reason: Pain) acetaminophen [Mapap Arthritis Pain] 650 mg Tablet Extended Release 650 mg PO Q8H PRN (Reason: Pain) bisacodyl 10 mg Suppository 10 mg ME DAILY PRN (Reason: Constipation) Enema 19-7 gram/118 mL Enema 118 ml ME DAILY PRN (Reason: Constipation) folic acid 1 mg Tablet 1 mg PO DAILY levetiracetam 750 mg Tablet 750 mg PO BID metoprolol succinate 25 mg Tablet Extended Release 24 Hr 25 mg PO DAILY polyethylene glycol 3350 [Miralax] 17 gram/dose Powder 17 g PO DAILY PRN (Reason: Constipation) Rx Instructions: mix with 8oz of water or juice amlodipine 2.5 mg Tablet 2.5 mg PO DAILY magnesium citrate Solution See Rx Instructions .ROUTE .COMPLEX Rx Instructions: give 8 ounces po in the afternoon for 1 day (start date 10/24/23 end date 10/25/23)(another start date 11/09/23 end date 11/10/23) Biofreeze (menthol) 4 % Gel 1 applic TOPICAL Q4H PRN (Reason: Pain) Rx Instructions: apply to back Stool Softener-Laxative 8.6-50 mg Tablet 1 tab PO Q12H PRN (Reason: Constipation) Mapap Arthritis Pain 650 mg Tablet Extended Release 650 mg PO DAILY Milk of Magnesia 400 mg/5 mL Suspension 30 ml PO DAILY PRN (Reason: Constipation) clopidogrel 75 mg Tablet 75 mg PO DAILY Qty: 30 0RF Lipitor 40 mg Tablet 80 mg PO BEDTIME Qty: 30 0RF Discharge Orders: Discharge ED (Routine); Ordered 07/02/24 Ordered By: Alfredo Tang Ref[place]: [place] D[place] [facility] [place] - Patient Instructions: Weakness (ED), Urinary Tract Infection in Older Adults (ED), Opioid Safety, Pain Management Activity Restrictions/Additional Instructions: Antibiotics as directed. Return for fever despite 3-4 doses of antibiotics, worsening mental status, worsening weakness, other concerning symptoms. See your doctor next week. Coding Level of Care Code ED Interior Horticulturist for Riki Tang
[2024-07-02 19:52] LABS: Basophils # 0.1 10^3/uL (0.0-0.1); Basophils % 0.7 %; Eosinophils # 0.2 10^3/uL (0.0-0.8); Eosinophils % 2.3 %; Hematocrit 37.9 % (37-53); Lymphocytes # 1.6 10^3/uL (0.8-4.8); Lymphocytes % 15.2 %; Mean Corpuscular HGB Conc 30.3 g/dL (30-55); Mean Corpuscular Hemoglobin 29.9 pg (27-33); Mean Corpuscular Volume 98.4 fl (82-101); Mean Platelet Volume 10.1 fL (7.4-10.4); Monocytes # 0.8 10^3/uL (0.2-0.9); Monocytes % 7.9 %; Neutrophils # 7.77 10^3/uL (1.8-7.7); Neutrophils % 73.1 %; Nucleated Red Blood Cells % 0 %; Platelet Count 395 10^3/cmm (157-399); Red Blood Count 3.85 10^6/uL (3.85-5.65); Red Cell Distribution Width 13.9 % (12.1-15.1); White Blood Count 10.63 10^3/uL (3.29-11.43)
[2024-07-02 19:57] LABS: INR 1.11 (0.8-1.2)
[2024-07-02 20:02] LABS: Alanine Aminotransferase < 5 U/L (0-41); Albumin Level 3.4 g/dL (3.5-5.2); Alkaline Phosphatase 87 U/L (40-130); Anion Gap 14.6 (5-19); Aspartate Amino Transferase 18 U/L (0-40); Blood Urea Nitrogen 26 mg/dL (8-23); C Reactive Protein 40.9 mg/L (0.0-4.9); Calcium 8.7 mg/dL (8.5-10.5); Carbon Dioxide 28 mmol/L (22-29); Chloride 100 mmol/L (98-107); Creatinine Clr Calc Pharmacy 50.2817; Globulin 3.4 g/dL (1.3-4.6); Glucose 231 mg/dL (65-115); Osmolality Calculated 298 mOsm/kg (285-295); Potassium 4.6 mmol/L (3.5-5.1); Sodium 138 mmol/L (136-145); Total Bilirubin 0.9 mg/dL (0.15-1.2); Total Protein 6.8 g/dL (6.6-8.7)
[2024-07-02 20:49] LABS: SARS Covid-2 Antigen negative (Negative)
[2024-07-02 21:17] LABS: Charge for UA Resulting for Rev
[2024-07-02 21:22] LABS: Bilirubin Urine Negative (Negative); Blood Urine 2+ (Negative); Glucose Urine UA Negative (Normal); Ketones Urine 1+ (Negative); Leukocyte Esterase Urine 1+ (Negative); Nitrate Urine Negative (Negative); Protein Urine 2+ (Negative); Specific Gravity, Urine 1.029 (1.005-1.030); Urine Appearance Cloudy (CLEAR); Urine Color Yellow (Yellow)
[2024-07-02 21:26] LABS: Bacteria Urine 4+ /hpf; Squamous Epithelial Cell Urine 0-5 /hpf (0-5); WBC Urine >100 /hpf (0-5)
[2024-07-02] MEDS: sodium chloride 0.9% 1,000 ML 999 ML IV (21:30)
[2024-07-02 21:36] LABS: Add Urine Culture? Yes
[2024-07-02] MEDS: cefTRIAXone 1,000 mg SDV 1000 MG IVP (22:10)
--- NOTE | 2024-07-02 22:15 | PC.NURSE ---
CALL PLACED TO [facility] TO LET THEM KNOW PT WILL BE DISCHARGED AND WILL NEED TRANSPORT BACK TO FACILITY. NURSE WILL CALL PT'S [facility] TO SEE IF HE WILL TRANSPORT.
[2024-07-02] MEDS: ondansetron 2 mg/ML SDV 2 mL 4 MG IVP (22:25)
--- NOTE | 2024-07-02 22:58 | PC.NURSE ---
[facility] is unable to transport the pt back to [facility] until after 0700. This nurse contacted [facility] ems and they said if they bring another pt here they would consider taking the pt back but will not make a trip here just to transport
[2024-07-03] VITALS (14 sets, daily range): BP systolic 83–132; BP diastolic 52–84; PULSE 70–106; RESP 14–16; TEMP 36.6; O2SAT 91–97
== END 2024-07-03 13:26 | disposition home or self-care (01) ==
PROVIDERS: Emergency Provider Emergency Medicine; PCP Family Medicine
DX: R53.1 Weakness (principal); N39.0 Urinary tract infection, site not specified; Z96.0 Presence of urogenital implants; Z79.02 Long term (current) use of antithrombotics/antiplatelets; Z79.82 Long term (current) use of aspirin; Z11.52 Encounter for screening for COVID-19; Z87.891 Personal history of nicotine dependence; I11.0 Hypertensive heart disease with heart failure; I50.9 Heart failure, unspecified; E78.5 Hyperlipidemia, unspecified; Z86.73 Personal history of transient ischemic attack (TIA), and cerebral infarction without residual deficits
CPT/HCPCS: 36415; 70450; 71045; 80053; 81003; 81015; 85025; 85610; 85730; 86140; 87077; 87086; 87186; 87426; 93005; 96361; 96374; 96375; 99285; J0696; J2405; J7030